=== PATIENT | female | born 1945 | race Caucasian/White ===

== ENCOUNTER 2021-12-19 13:58 | Outpatient (CLI) | payer MEDICARE, BC, SELFPAY ==
--- OUTSIDE RECORDS SUMMARY | 2021-11-22 08:53 | XMS_ITS | Continuity of Care Document ---
:1945 Author Care Team Providers Name Role Phone KAYDEN Pike Attending Physician KAYDEN Pike Primary Care Physician Allergies, Adverse Reactions, Alerts Allergen Type Severity Reaction Last Verified Status Updated Naproxen Allergy Unknown stomach upset November 06, Yes Active 2021 Influenza Allergy Unknown red swollen November 06, Yes Active Vaccines arm (3 in) 2021 and hot to touch Social History Smoking Status Status Start Date End Date Date of Observat ion Never smoked tobacco November 06 022 12:45pm (finding) Observation Status Observation Response Date of Response March 07, 2019 5: 49pm Non-smoker March 07, 2019 5: 49pm Does not use illicit drugs April 09, 2020 11:21am Additional Data Assigned Sex Female Problems Active Problems Medical Problem Onset Date Status Osteoarthritis February 23, 2012 Active Seasonal allergies February 23, 2012 Active Hyperlipidemia March 25, 2013 Active Left bundle branch block Active Environmental allergies Active B12 deficiency anemia Active Pernicious anemia Active Bladder prolapse Active Osteopenia Active Dystonia Active Low vitamin D level Active Statin intolerance Active HCD (health care directive) February 08, 2019 Active History of cataract Active Lumbar radiculopathy Active H/O: hysterectomy February 23, 2012 Active H/O breast biopsy March 03, 2013 Active History of tonsillectomy Active laparoscopic procedure for Active infertility Inactive/Resolved Problems Medical Problem Onset Date Status Cough November 15, 2013 Resolved Maxillary sinusitis, acute Resolved Wart Resolved Acute maxillary sinusitis Resolved Medications Medication Status Dose Units Route Directions Qty Days Start End Ins tructions Date Date Allergy Active 1 UNIT INJ As Directed Shots Botulinum Active 100 UNIT IM Q3 Months 1 Dr Chinchilla Toxin Type A Ann (Botox) [place] Unknown clinic of Strength INJ Neurolo gy Cyanocobalam Active 1000 MCG IM Once 1 in (Vitamin B 12) 1,000 Mcg/Ml INJ Doxycycline Active 100 MG PO Twice Daily 18 November Hyclate For 10 Days 2021 10:53am Fluocinolone Active 5 DROP AFFEAR Twice A Day 18 November Acetonide , (Otic) 2021 10:53am Fluticasone Active 1 SPRAY EACH Twice A Day 03 March Propionate NOSTR , (Fluticasone 2013 Propionate 7:38am (Nasal)) 50 Mcg/1 Sublette INH Polymyxin/Tr Active 2 DROP AFE Three Times 10 June Use tid in imethoprim A Day , affected 3 Sulfate 2021 times day fo r (Polymyxin 11:05am 5 to 7 days B-Trimethopr im ()) ADILENE Albuterol Disconti 2 PUFF INH Every 4 June (Proventil nued Hours , , Hfa) 90 Mcg 2016 2016 INH 9:04am 8:20am Albuterol Disconti 2 PUFF INH Every 4 September (Proventil nued Hours as , r Hfa) 90 Mcg needed 2013, INH 10:00am 2013 7:30am Amoxicillin Disconti 500 MG PO Tid X 7 July nued Days r , , 2019 2020 3:12pm 10:17a m Amoxicillin Disconti 500 MG PO Tid X 7 November nued Days , 2016 2:31pm 9:40am Amoxicillin Disconti 875 MG PO Twice Daily October nued For 10 Days , 2014 9:29am 12:46p m Aspirin Disconti 325 MG OR Daily r nued y 2021 10:57a m Aspirin Disconti 325 MG PO Daily Novemb nued er 2011 8:33am Atorvastatin Disconti 20 MG PO Bedtime Marchuar Calcium nued , y 2013, 7:38am 2014 9:21am Azithromycin Disconti 250-5 MG PO Daily 06 March Novemb 5 00 mg x 1 nued , er day then 250 2020 01, mg daily x 4 6:22pm 2020 days 11:08a m Azithromycin Disconti 250-5 MG PO As Directed [address] 500 MG ON DAY (Zithromax nued , , 1 THEN 25 0 MG Z-Herbie) 250 2019 2019 DAILY X 4 Mg TAB 9:02am 11:29a MORE DAYS m Azithromycin Disconti 250-5 MG PO As Directed Ap ril 500 MG ON DAY (Zithromax nued 00 er 17th, 1 THEN 25 0 MG Z-Herbie) 250 2018 DAILY X 4 Mg TAB 2018 9:51am MORE DAYS 10:50am Azithromycin Disconti 250-5 MG PO As Directed Se ptem 500 MG ON DAY (Zithromax nued 00 er fransisco 1 THEN 25 0 MG Z-Herbie) 250 , DAILY X 4 Mg TAB 2017 2017 MORE DAYS 9:38am 10:50a m Azithromycin Disconti 250-5 MG PO As Directed August em 500 MG ON DAY (Zithromax nued 00 , fransisco 1 THEN 25 0 MG Z-Herbie) 250 2018 01, DAILY X 4 Mg TAB 9:59am 2017 MORE DAYS 9:09am Azithromycin Disconti 250-5 MG PO As Directed [facility] Ja nuar 500 MG ON DAY (Zithromax nued 00 r 14th, y 1 THEN 250 MG Z-Herbie) 250 2017 04, DAILY X 4 Mg TAB 10:24am 2017 MORE DAYS 10:11a m Azithromycin Disconti 250-5 MG PO Daily June 50 0 mg x 1 nued 00 , 30, day then 250 2016 2017 mg daily x 4 9:04am 9:40am days Azithromycin Disconti 250-5 MG [facility] x 1 nued 00 r 12th, y day then 250 2016 04, mg daily x 4 8:44am 2017 days 8:33am Azithromycin Disconti 250-5 MG PO Daily 04 November Octobe 500 mg x 1 nued 00 17, r day then 250 2013, mg daily x 4 4:34pm 2013 days 7:30am Azithromycin Disconti 250-5 MG PO Daily August 500 mg x 1 nued 00 , , day then 250 2013 2013 mg daily x 4 3:45pm 9:43am days Azithromycin Disconti 250-5 MG PO Daily 04 October Octobe 500 mg x 1 nued 00 9, r 3rd, day then 250 2012 2012 mg daily x 4 9:58am 9:47am days Cyanocobalam Disconti 1000 MCG IM Once October in (Vitamin nued 14th, 14, B 12) 2021 Mcg/Ml INJ 8:47am 8:57am Cyanocobalam Disconti 1000 MCG IM Once September in (Vitamin nued , 27, B 12) 2021 Mcg/Ml INJ 11:15am 11:17a m Cyanocobalam Disconti 1000 MCG IM Once September in (Vitamin nued 4th, 4th, B 12) 000 2021 2021 Mcg/Ml INJ 1:39pm 2:01pm Cyanocobalam Disconti 1000 MCG IM Once July in (Vitamin nued , , B 12) 2021 Mcg/Ml INJ 9:42am 9:53am Cyanocobalam Disconti 1000 MCG IM Once July in (Vitamin nued 8th, 8th, B 12) 2021 Mcg/Ml INJ 9:14am 9:20am Cyanocobalam Disconti 1000 MCG IM Once Februa in (Vitamin nued y 7th, ry B 12) 2021 7th, Mcg/Ml INJ 10:24am 2021 10:28a m Cyanocobalam Disconti 1000 MCG IM Once June in (Vitamin nued 21st, y B 12) 2021, Mcg/Ml INJ 11:17am 2021 11:18a m Cyanocobalam Disconti 1000 MCG IM Once June in (Vitamin nued 3rd, y 3rd, B 12) 2021 Mcg/Ml INJ 10:12am 10:15a m Cyanocobalam Disconti 1000 MCG IM Once in (Vitamin nued r 19, er B 12) 2020, Mcg/Ml INJ 8:51am 2020 9:11am Cyanocobalam Disconti 1000 MCG IM Once b in (Vitamin nued r 9th, er B 12) 2020, Mcg/Ml INJ 8:37am 2020 9:15am Cyanocobalam Disconti 1000 MCG IM Once 1 October Octobe in (Vitamin nued , r B 12) 1,000 2020, Mcg/Ml INJ 9:02am 2020 9:11am Cyanocobalam Disconti 1000 MCG IM Once March in (Vitamin nued , r B 12) 000 2021 05, Mcg/Ml INJ 8:34am 2020 8:45am Cyanocobalam Disconti 1000 MCG IM Once 1 Septem in (Vitamin nued er fransisco B 12) 1,000 , , Mcg/Ml INJ 2020 2020 12:58pm 1:06pm Cyanocobalam Disconti 1000 MCG IM Once 1 Septem in (Vitamin nued er fransisco B 12) 1,000 , , Mcg/Ml INJ 2020 2020 9:40am 9:53am Cyanocobalam Disconti 1000 MCG IM Once December in (Vitamin nued , , B 12) 2020 Mcg/Ml INJ 10:38am 10:40a m Cyanocobalam Disconti 1000 MCG IM Once December in (Vitamin nued , , B 12) 000 2020 2020 Mcg/Ml INJ 9:44am 9:46am Cyanocobalam Disconti 1000 MCG IM Once December in (Vitamin nued , , B 12) 2020 Mcg/Ml INJ 2:36pm 2:39pm Cyanocobalam Disconti 1000 MCG IM Once November in (Vitamin nued , , B 12) ,2020 Mcg/Ml INJ 9:23am 9:51am Cyanocobalam Disconti 1000 MCG IM Once November in (Vitamin nued , , B 12) ,000 2020 2020 Mcg/Ml INJ 8:32am 8:39am Cyanocobalam Disconti 1000 MCG IM Once October in (Vitamin nued , B 12) ,000 2020 2020 Mcg/Ml INJ 9:25am 9:29am Cyanocobalam Disconti 1000 MCG IM Once October in (Vitamin nued , , B 12) ,000 2021 2021 Mcg/Ml INJ 10:36am 10:39a m Cyanocobalam Disconti 1000 MCG IM Once September in (Vitamin nued 24th, 24, B 12) ,000 2020 2020 Mcg/Ml INJ 9:08am 9:10am Cyanocobalam Disconti 1000 MCG IM Once September in (Vitamin nued 10th, 10th, B 12) ,000 2020 2020 Mcg/Ml INJ 8:32am 8:59am Cyanocobalam Disconti 1000 MCG IM Once August in (Vitamin nued , , B 12) 1,000 2020 2020 Mcg/Ml INJ 8:47am 8:49am Cyanocobalam Disconti 1000 MCG IM Once August in (Vitamin nued 16, 16, B 12) ,000 2020 2020 Mcg/Ml INJ 8:51am 8:55am Cyanocobalam Disconti 1000 MCG IM Once August in (Vitamin nued , , B 12) ,000 2020 2020 Mcg/Ml INJ 8:33am 8:51am Cyanocobalam Disconti 1000 MCG IM Once July in (Vitamin nued 18, 18, B 12) ,000 2020 2020 Mcg/Ml INJ 10:49am 10:56a m Cyanocobalam Disconti 1000 MCG IM Once July in (Vitamin nued 4th, 4th, B 12) ,000 2020 2020 Mcg/Ml INJ 8:35am 8:40am Cyanocobalam Disconti 1000 MCG IM Once 1 Februar Februa in (Vitamin nued y 15, ry B 12) 2020, Mcg/Ml INJ 2:30pm 2020 2:36pm Cyanocobalam Disconti 1000 MCG IM Once 1 Februar Februa in (Vitamin nued y , ry B 12) 2020, Mcg/Ml INJ 9:38am 2020 9:42am Cyanocobalam Disconti 1000 MCG IM Once June in (Vitamin nued 18th, y B 12) 2020, Mcg/Ml INJ 9:03am 2020 9:05am Cyanocobalam Disconti 1000 MCG IM Once 1 Netta Januar in (Vitamin nued 4th, y 4th, B 12) 1,000 2020 2020 Mcg/Ml INJ 10:09am 10:21a m Cyanocobalam Disconti 1000 MCG IM Once 1 Decembe Decemb in (Vitamin nued r 15th, er B 12) 2019, Mcg/Ml INJ 8:58am 2019 9:01am Cyanocobalam Disconti 1000 MCG IM Once 1 in (Vitamin nued r 30th, er B 12) 12019, Mcg/Ml INJ 8:56am 2019 9:00am Cyanocobalam Disconti 1000 MCG IM Once 1 in (Vitamin nued r 10th, er B 12) 2019, Mcg/Ml INJ 9:12am 2019 9:15am Cyanocobalam Disconti 1000 MCG IM Once Marchobe in (Vitamin nued 28th, r B 12) 2019, Mcg/Ml INJ 9:59am 2019 10:02a m Cyanocobalam Disconti 1000 MCG IM Once Marchobe in (Vitamin nued 16, r B 12) 12019, Mcg/Ml INJ 10:00am 2019 10:03a m Cyanocobalam Disconti 1000 MCG IM Once 1 Sept Septem in (Vitamin nued er fransisco B 12) 1000 , , Mcg/Ml INJ 2019 2019 1:14pm 1:17pm Cyanocobalam Disconti 1000 MCG IM Once 1 Septemb Septem in (Vitamin nued er fransisco B 12) 1,000 15, 15, Mcg/Ml INJ 2019 2019 1:45pm 1:48pm Cyanocobalam Disconti 1000 MCG IM Once 1 Septemb Septem in (Vitamin nued er 1st, fransisco B 12) 2019, Mcg/Ml INJ 8:40am 2019 8:45am Cyanocobalam Disconti 1000 MCG IM Once December in (Vitamin nued 17th, 17th, B 12) 2019 Mcg/Ml INJ 9:34am 9:38am Cyanocobalam Disconti 1000 MCG IM Once December in (Vitamin nued 4th, 4th, B 12) 1,000 2020 2020 Mcg/Ml INJ 8:37am 8:52am Cyanocobalam Disconti 1000 MCG IM Once November in (Vitamin nued , B 12) 1,000 2019 2020 Mcg/Ml INJ 10:41am 10:43a m Cyanocobalam Disconti 1000 MCG IM Once November in (Vitamin nued , , B 12) 1,000 2019 2020 Mcg/Ml INJ 8:53am 8:55am Cyanocobalam Disconti 1000 MCG IM Once October in (Vitamin nued , B 12) 1,000 2019 2020 Mcg/Ml INJ 9:56am 9:59am Cyanocobalam Disconti 1000 MCG IM Once September in (Vitamin nued , , B 12) 1,000 2019 2020 Mcg/Ml INJ 9:10am 9:15am Cyanocobalam Disconti 1000 MCG IM Once September in (Vitamin nued , B 12) 1,000 2019 2020 Mcg/Ml INJ 8:47am 8:56am Cyanocobalam Disconti 1000 MCG IM Once August in (Vitamin nued , , B 12) 1,000 2019 2020 Mcg/Ml INJ 9:05am 9:10am Cyanocobalam Disconti 1000 MCG IM Once August in (Vitamin nued , , B 12) 1,000 2019 2020 Mcg/Ml INJ 8:43am 8:45am Cyanocobalam Disconti 1000 MCG IM Once July in (Vitamin nued , , B 12) 1,000 2019 2020 Mcg/Ml INJ 8:45am 8:54am Cyanocobalam Disconti 1000 MCG IM Once July in (Vitamin nued , , B 12) 1,000 2019 2020 Mcg/Ml INJ 9:09am 9:15am Cyanocobalam Disconti 1000 MCG IM Once July in (Vitamin nued , B 12) 1,000 2019 2020 Mcg/Ml INJ 9:28am 9:29am Cyanocobalam Disconti 1000 MCG IM Once 1 Februar Februa in (Vitamin nued 18, B 12) 1,000 2019, Mcg/Ml INJ 3:26pm 2020 3:31pm Cyanocobalam Disconti 1000 MCG IM Once June in (Vitamin nued 24th, y B 12) 2019, Mcg/Ml INJ 10:23am 2019 10:32a m Cyanocobalam Disconti 1000 MCG IM Once June in (Vitamin nued 2nd, y 2nd, B 12) 2019 Mcg/Ml INJ 9:44am 9:54am Cyanocobalam Disconti 1000 MCG IM Once 1 Decembe Decemb in (Vitamin nued r 13, er B 12) 2018, Mcg/Ml INJ 8:32am 2018 8:38am Cyanocobalam Disconti 1000 MCG IM Once Novembe Novemb in (Vitamin nued r , er B 12) 2018, Mcg/Ml INJ 8:58am 2018 9:01am Cyanocobalam Disconti 1000 MCG IM Once Novemb in (Vitamin nued r 4th, er B 12) 2018, Mcg/Ml INJ 3:50pm 2018 3:52pm Cyanocobalam Disconti 1000 MCG IM Once March in (Vitamin nued 15th, r B 12) 2018, Mcg/Ml INJ 8:33am 2018 8:39am Cyanocobalam Disconti 1000 MCG IM Once in (Vitamin nued er fransisco B 12) , , Mcg/Ml INJ 2018 2018 8:43am 8:48am Cyanocobalam Disconti 1000 MCG IM Once December in (Vitamin nued , 16, B 12) 2018 Mcg/Ml INJ 3:31pm 3:34pm Cyanocobalam Disconti 1000 MCG IM Once November in (Vitamin nued , , B 12) 2018 Mcg/Ml INJ 8:41am 8:45am Cyanocobalam Disconti 1000 MCG IM Once October in (Vitamin nued , , B 12) 2018 Mcg/Ml INJ 9:58am 10:05a m Cyanocobalam Disconti 1000 MCG IM Once September in (Vitamin nued 13th, 13, B 12) 2018 Mcg/Ml INJ 8:55am 9:15am Cyanocobalam Disconti 1000 MCG IM Once August in (Vitamin nued 15th, 15, B 12) 2018 Mcg/Ml INJ 7:55am 8:08am Cyanocobalam Disconti 1000 MCG IM Once July in (Vitamin nued 11, 11, B 12) 2018 Mcg/Ml INJ 8:47am 8:57am Cyanocobalam Disconti 1000 MCG IM Once ua in (Vitamin nued y 11th, ry B 12) 2018, Mcg/Ml INJ 10:03am 2018 10:07a m Cyanocobalam Disconti 1000 MCG IM Once June in (Vitamin nued 9th, y 9th, B 12) 2018 Mcg/Ml INJ 3:15pm 3:18pm Cyanocobalam Disconti 1000 MCG IM Once 1 Decembe Decemb in (Vitamin nued r 10th, er B 12) 2017 10th, Mcg/Ml INJ 9:12am 2017 9:14am Cyanocobalam Disconti 1000 MCG IM Once Novemb in (Vitamin nued r 9th, er B 12) 2017, Mcg/Ml INJ 9:45am 2017 10:00a m Cyanocobalam Disconti 1000 MCG IM Once March in (Vitamin nued 11th, r B 12) 2017, Mcg/Ml INJ 9:50am 2017 9:53am Cyanocobalam Disconti 1000 MCG IM Once Sept in (Vitamin nued er fransisco B 12) , 17, Mcg/Ml INJ 2017 2017 9:16am 9:31am Cyanocobalam Disconti 1000 MCG IM Once December in (Vitamin nued , B 12) 2017 Mcg/Ml INJ 10:03am 10:07a m Cyanocobalam Disconti 1000 MCG IM Once November in (Vitamin nued , , B 12) 2017 Mcg/Ml INJ 8:44am 8:48am Cyanocobalam Disconti 1000 MCG IM Once October in (Vitamin nued , , B 12) 2017 Mcg/Ml INJ 8:38am 8:40am Cyanocobalam Disconti 1000 MCG IM Once September in (Vitamin nued , , B 12) 2017 Mcg/Ml INJ 10:36am 10:38a m Cyanocobalam Disconti 1000 MCG IM Once August in (Vitamin nued , , B 12) 2017 Mcg/Ml INJ 8:39am 8:45am Cyanocobalam Disconti 1000 MCG IM Once July in (Vitamin nued , , B 12) 2017 Mcg/Ml INJ 10:07am 10:17a m Cyanocobalam Disconti 1000 MCG IM Once June in (Vitamin nued 30, y B 12) 2017, Mcg/Ml INJ 8:53am 2017 8:56am Cyanocobalam Disconti 1000 MCG IM Once Decembe Decemb in (Vitamin nued r , er B 12) 2016, Mcg/Ml INJ 9:45am 2016 9:48am Cyanocobalam Disconti 1000 MCG IM Once in (Vitamin nued r , er B 12) 2016, Mcg/Ml INJ 10:54am 2016 10:58a m Cyanocobalam Disconti 1000 MCG IM Once March in (Vitamin nued , r B 12) 2016, Mcg/Ml INJ 2:07pm 2016 2:13pm Cyanocobalam Disconti 1000 MCG IM Once Sept in (Vitamin nued er fransisco B 12) , Mcg/Ml INJ 2016 2016 8:46am 8:50am Cyanocobalam Disconti 1000 MCG IM Once December in (Vitamin nued , B 12) 2016 Mcg/Ml INJ 3:11pm 3:17pm Cyanocobalam Disconti 1000 MCG IM Once November in (Vitamin nued , B 12) 2016 Mcg/Ml INJ 1:16pm 1:21pm Cyanocobalam Disconti 1000 MCG IM Once October in (Vitamin nued , , B 12) 2016 INJ 1:28pm 1:32pm Cyanocobalam Disconti 1000 MCG IM Once September in (Vitamin nued , , B 12) 2016 INJ 3:59pm 4:01pm Cyanocobalam Disconti 1000 MCG IM Once August in (Vitamin nued , , B 12) 2016 INJ 1:08pm 1:12pm Cyanocobalam Disconti 1000 MCG IM Once July in (Vitamin nued , , B 12) 2016 INJ 8:37am 8:48am Cyanocobalam Disconti 1000 MCG IM Once 1 uar Februa in (Vitamin nued y , ry B 12) 2016, INJ 9:03am 2016 9:08am Cyanocobalam Disconti 1000 MCG IM Once Juneuar in (Vitamin nued , y B 12) 2016, INJ 11:07am 2016 11:09a m Cyanocobalam Disconti 1000 MCG IM Once 1 Decembe Decemb in (Vitamin nued r , er B 12) 2015, INJ 8:49am 2015 8:56am Cyanocobalam Disconti 1000 MCG IM Once b in (Vitamin nued r , er B 12) 2015, INJ 8:44am 2015 8:46am Cyanocobalam Disconti 1000 MCG IM Once March in (Vitamin nued , r B 12) 2015, INJ 8:32am 2016 8:39am Cyanocobalam Disconti 1000 MCG IM Once 1 Septemb Sept in (Vitamin nued er fransisco B 12) , INJ 2015 2016 8:38am 8:40am Cyanocobalam Disconti 1000 MCG SUBQ Once December in (Vitamin nued , , B 12) 2015 INJ 8:21am 8:34am Cyanocobalam Disconti 1000 MCG IM Once November in (Vitamin nued , , B 12) 2015 INJ 8:40am 8:45am Cyanocobalam Disconti 1000 MCG IM Once October in (Vitamin nued nd, , B 12) 2015 INJ 8:39am 8:44am Cyanocobalam Disconti 1000 MCG IM Once September in (Vitamin nued , , B 12) 2015 INJ 11:39am 11:41a m Cyanocobalam Disconti 1000 MCG IM Once August in (Vitamin nued , , B 12) 2015 INJ 8:38am 8:41am Cyanocobalam Disconti 1000 MCG IM Once July in (Vitamin nued , , B 12) 2015 INJ 8:45am 8:48am Cyanocobalam Disconti 1000 MCG IM Once uar Februa in (Vitamin nued y , ry B 12) 2015, INJ 8:39am 2015 8:42am Cyanocobalam Disconti 1000 MCG IM Once Juneuar in (Vitamin nued th, y B 12) 2015, INJ 10:13am 2015 10:16a m Cyanocobalam Disconti 1000 MCG IM Once Juneuar in (Vitamin nued 7th, y 7th, B 12) 2015 INJ 8:36am 9:08am Cyanocobalam Disconti 1000 MCG IM Once 1 Decembe Decemb in (Vitamin nued r 11th, er B 12) 2014, INJ 8:35am 2014 8:44am Cyanocobalam Disconti 1000 MCG IM Once 1 Novembe Novemb in (Vitamin nued r 18th, er B 12) 2014, INJ 9:04am 2014 9:06am Cyanocobalam Disconti 1000 MCG IM Once 1 Novembe Novemb in (Vitamin nued r 11th, er B 12) 2014, INJ 8:28am 2014 8:29am Cyanocobalam Disconti 1000 MCG IM Once 1 Novembe Novemb in (Vitamin nued r 4th, er B 12) 2014, INJ 8:24am 2014 8:29am Cyanocobalam Disconti 1000 MCG IM Once March in (Vitamin nued 28th, r B 12) 000 2014, INJ 10:15am 2014 10:16a m Cyanocobalam Disconti 1000 MCG IM Once Marchobe in (Vitamin nued , r B 12) 1 000 2015 05, INJ 8:29am 2014 8:32am Cyanocobalam Disconti 1000 MCG IM Once Septem in (Vitamin nued er fransisco B 12) 1 000 , , INJ 2014 2014 1:18pm 1:24pm Cyclobenzapr Disconti 5-10 MG PO Three Times 13 January Sep tem ine Hcl nued A Day as , fransisco needed 2019, 11:46am 2019 1:26pm Diphenhydram Disconti 1-2 PO Bedtime December f or allergies ine Hcl nued , (Sleep) 2018 (Benadryl) 8:33am 25 Mg TAB Diphtheria/T Disconti 0.5 ML IM Once December etanus/Acell nued , , Pertussis 2015 2015 (Adacel) 0.5 8:29am 8:34am Ml INJ Doxycycline Disconti 100 MG PO Twice Daily December ar Hyclate nued For 10 Days 2020, 9:39am 2021 10:57a m Doxycycline Disconti 100 MG PO Twice A Day September Hyclate nued , 2013 5:35pm 10:56a m Doxycycline Disconti 100 MG PO Twice A Day Septemberob e Monohydrate nued , r 2012 4:45pm 9:47am Fluticasone Disconti 1 SPRAY EACH Twice A Day March obe Propionate nued NOSTR , r (Fluticasone 2012, Propionate 10:00am 2013 (Nasal)) 50 7:38am Mcg/1 Sublette INH Gabapentin Disconti 100 MG PO Twice A Day Novem nued er 2019 11:16a m Ibuprofen Disconti 2 TABLET PO As Needed July 10:17a m Ibuprofen Disconti 200 MG PO As Needed September nued 2012 4:34pm 3:22pm Ibuprofen Disconti 200 MG PO Q6h Prn September 4:34pm Influenza Disconti 0.7 ML IM Once 1 Virus Vac nued r 2nd, er Split High 2020 2nd, (Fluzone 9:11am 2019 High-Dose Pf 10:39a 2019 0.7 Ml) m 1 Inj INJ Influenza Disconti 0.5 ML IM Once Marchobe Virus nued , r Vaccine 2018 , (Fluzone 1:21pm 2017 High-Dose 1:25pm (65 Yrs And Older) 2017-) 1 Inj INJ Influenza Disconti 0.5 ML IM Once Marchobe Virus nued , r Vaccine 2018, Split 1:43pm 2018 (Fluzone 1:46pm High-Dose Pf 2018 0.5 Ml) 1 Inj INJ Influenza Disconti 0.5 ML IM Once Marchobe Virus nued , r Vaccine 2017 04, Split 3:04pm 2016 (Fluzone 3:05pm High-Dose Pf 2017 0.5 Ml) 1 Inj INJ Influenza Disconti 0.5 ML IM Once Marchobe Virus nued , r Vaccine 2015, Split 8:32am 2015 (Fluzone 8:39am High-Dose (65 Yrs And Older) 2015-) 1 Inj INJ Influenza Disconti 0.5 ML IM Once Marchobe Virus nued , r Vaccine 2015 05, Split 8:29am 2014 (Fluzone 8:32am High-Dose (65 Yrs And Older) 2014-) 1 Inj INJ Influenza Disconti 0.5 ML IM Once Marchobe Virus nued , r Vaccine 2013, Split 7:52am 2013 (Fluzone 8:02am High-Dose (65 Yrs And Older) 2013-) 1 Inj INJ Influenza Disconti 0.5 ML IM Once Marchobe Virus nued 3rd, r 3rd, Vaccine 2012 2012 Split 9:57am 10:09a (Fluzone (3 m Years And Older) [id number]) 1 Ml INJ Influenza Disconti 0.5 ML IM Once 1 Janemb Septem Virus nued er fransisco Vaccine , 24, Split 2011 2011 (Fluzone Pf 8:16am 8:37am [id number] (0.5 Ml)) 0.5 Ml INJ Levofloxacin Disconti 250 MG PO Daily 3 Decembe Decemb (Levaquin) nued r 15, er 250 Mg TAB 2019, 8:37am 2019 3:12pm Meclizine Disconti 12.5 MG PO Every 8 28 November Octobe Hcl nued Hours as 30th, r needed 2016 12th, 9:53am 2019 6:09pm Montelukast Disconti 10 MG PO Bedtime September Sodium nued 2013 10:00am 5:18pm Oseltamivir Disconti 75 MG PO Daily August One capsule daily; if symptoms develop take twice daily Phosphate nued y , , until all capsules are done. 2017 2017 5:33pm 7:46am Pneumococcal Disconti 0.5 ML IM Once August Polyvalent nued , , Vaccine 2017 2017 (Prevnar 13) 8:39am 8:45am 0.5 Ml INJ Pneumococcal Disconti 0.5 ML IM Once Polyvalent nued er fransisco Vaccine , (Pneumovax-2 2011 2011 3 Multidose 8:16am 8:37am Vial) 23 Mcg/0.5 Ml INJ Pravastatin Disconti 20 MG PO Bedtime August [facility] Sodium nued , er (Pravachol) 2016 05, 20 Mg TAB 2:29pm 2015 8:34am Prednisone Disconti 20 MG PO Twice A Day September nued , 2020 9:34am 3:28pm Prednisone Disconti 20 MG PO Twice A Day July nued , 2020 10:58am 9:34am Prednisone Disconti 20 MG PO Twice A Day h nued r , 2019 11:37am 10:17a m Prednisone Disconti 20 MG PO Twice A Day March mb nued 2nd, er 2020 01, 11:57am 2019 11:16a m Prednisone Disconti 20 MG PO Twice A Day December m nued 11, fransisco 2019, 11:46am 2019 1:11pm Prednisone Disconti 20-60 MG PO Daily Ud July 60 MG PO DAILY FOR 3 DAYS, THEN nued , 40 MG PO DAILY FOR 3 DAYS, THEN 2019 2019 20 MG PO DAILY FOR 3 DAYS. 1:37pm 8:42am Prednisone Disconti 20 MG PO Twice A Day July, , 2019 2019 9:15am 1:37pm Prednisone Disconti 10-40 MG PO Daily Marchobe 4 t abs daily x3d; then 3 tabs daily x3d; then 2 tabs daily nued , r x3d; then 1 ta b daily x 3d. 2018, 2:26pm 2018 8:21am Prednisone Disconti 20 MG PO Daily October 2 tab s by nued , r mouth today, 2013, then 1 tab 4:34pm 2013 daily x 3 7:30am days. Immunizations Immunization Event Date Not Given Dose Radio Equipment Installer Lot Vac cine Reason Number Number Informatio n Statement (VIS) Deta il COVID-19 Pfizer July 02 PFIZER-BIO [id number] 2020 COVID-19 Pfizer August 11, PFIZER-[employer] [id number] 2020 COVID Pfizer February 01 [id number] 2020 Influenza January 1 Sanofi Pasteur [id number] 2011 Influenza March 03, 2 Sanofi [id number] 2013 Influenza March 27, 3 Sanofi Pasteur [id number] 2014 Influenza March 12, 4 Sanofi [id number] 2015 Influenza March 21, 5 SANOFI [id number] 2016 Influenza March 11, 6 Sanofi [id number] 2017 Influenza March 22, 7 SANOFI [id number] 2018 Influenza March 28, 8 SANOFI [id number] 2019 Influenza April 02, 9 SANOFI [id number] 2019 Prevnar Adult September 08, 1 WYETH [id number] 2017 Pneumovax Adult January 1 merck 18041hr 2011 Tetanus/Diptheri November 06, 2 a 1999 Tetanus/Diptheri November 11, 1 a 1988 Tdap January 20, 1 SANOFI [id number] (adolescent/adul 2016 t) Medical Equipment Device Date Implanted Device Details TECNIS IOL January 12, 2019 ANNEMARIE: [id number] Issuing Agency: [employer] Device Id: [id number] Expiration Date: 07-10-10 Serial Number: [id number] TECNIS IOL January 26, 2019 ANNEMARIE: [id number] Issuing Agency: [employer] Device Id: [id number] Expiration Date: 07-11-04 Serial Number: [id number] Procedures Procedure Date Performed Status DXA BONE DENSITY AXIAL October 30, 2021 completed Bone densitometry October 30, 2021 completed Relevant Diagnostic Tests and/or Laboratory Data Laboratory Results Test Date/Time Result Interpretation Reference Result Perfo rming Range Comment Site Stool November 06, SEE [facility] POC Lab Colorectal 2021 8:11am SCANNED [facility] Cancer DNA REPORT Screen Diagnostic Imaging Reports Report Dictated Date/Time Dictated By Status March 10, 2019 Teresa Cardoso MD active 12:46pm [place] [address] ~DISCHARG E SUMMARY~ Patient: MAMI CASTANO MR #: [id number] : 1945 Age: 74 Sex: F MD: TERESA CARDOSO MD Report #: [id number] Loc: [facility] Dr berman March 10, 2019 Dr. Gautam Mireles [facility] [address] [facility] [address] RE: Mami Castano : [birth year] Dear Dr. Mireles: ?? I saw your patient, Mami Castano, today f or her final postop visit following cataract surgery that I did in her right eye on 01/12/2019 and the left eye on 01/26/2019. ??She is very happy with her improved vision. ??On examination, her visual acuity without correction is 20/3 0 right eye and 20/30 left eye. ??Best corrected visual acuity is 20/20 right e ye with Chelsea -0.75 at 107 degrees and 20/20 left eye with -0.50 -0.50 at 80 de grees. ??Her intraocular pressures are 14 in the right eye and 14 in the left eye. ??Slit lamp exam shows a quiet anterior chamber and bilateral posterior chamber monofocal intraocular lenses in both eyes. ?? My impression is as follows: 1. Status post cataract surgery in bot h eyes: ??She is doing well, with a best corrected visual acuity of 20/20 in each eye. ??I gave her a glasses prescription that she may have filled with you. ? 2. Posterior vitreous detachment, both eyes.?? 3. Left upper lid ptosis: ??I referred her to Dr. Jeannine Feliz at [facility] for a 2nd op inion for the treatment of her hemifacial spasm. ??When she initially p resented to me, she stated that she had some unwanted side effects with double v ision from previous Botox injections. ? 4. Dermatochalasis, both eyes.?? She will follow up with you next year fo r her annual exam and ongoing care. ??Please do not hesitate to contact me d irectly with any questions or concerns. ??It is a pleasure to share in the care of this very nice patient. ??Thank you again for the referral. Sincerely, Teresa Cardoso MD MJM:ray Dictated By: TERESA CARDOSO MD Signed B y: Report Dictated Date/Time Dictated By Status October 30, 2021 3:10pm Joanne Bone MD completed [address] [address] ~DEPARTMENT OF DI AGNOSTIC IMAGING~ Patient: MAMI CASTANO MR #: [id number] : 1945 Age: 76 Sex: F Ordering MD: Daphne Pike Rm/Be d: Loc: RAD Report #: [id number] Si gned DATE: 10/30/2021 Technique: DXA Bone Densitometry perform ed on Palm System.?? *Comparison exams done prior to 10/2019 w ere performed on different unit, [employer]. Indication:??postmenopausal; screening f or osteoporosis; hysterectomy; ? Clinical Information Provided by Patient : Has the following medical conditions: Hysterectomy Patient maximum height was 65 Menopause Age 42 No regular weight bearing exercise ?? Does not regularly consume dairy product s ?? Drinks caffeinated beverages ?? Onset of menses at age 15 Number of children 2 ? Bone Density:??Exam date 10/30/2021 Region BMD (g/cm2) T-score Z-score Classification AP Spine(L1-L4) 1.150 ??0.9 ??3.4 Normal Femoral Neck(Left) 0.832 -0.2 ??2.0 Normal Total Hip(Left) 0.926 -0.1 ??1.7 Normal Femoral Neck(Right) 0.852 ??0.0 ??2.2 Normal Total Hip(Right) 0.954 ??0.1 ??2.0 Normal Femoral Neck Mean 0.842 -0.1 2.1 Normal Total Hip Mean 0.940 0.0 1.9 Normal World Health Organization criteria for B MD impression classify patients as Normal (T-score at or above -1.0), Osteo penia (T-score between -1.0 and -2.5), or Osteoporosis (T-score at or below -2. 5). ? 10-year Fracture Risk: FRAX not reported because:?? All T-score s for Spine Total, Hip Total, Femoral Neck at or above -1.0 ? Previous Exams: ?? Region Exam Date Age BMD (g/cm2) T-score BMD Change vs. Baseline BMD Change vs. Previous AP Spine (L1-L4) 10/30/2021 76 1.150 ??0.9 2.0%# 2.0%# ?? 09/14/2017 72 1.127 ??0.7 ? Total Hip(Left) 10/30/2021 76 0.926 -0.1 -4.8%*# -4.8%*# ?? 09/14/2017 72 0.972 ??0.2 ? Total Hip(Right) 10/30/2021 76 0.954 ??0.1 -2.4%# -2.4%# ?? 09/14/2017 72 0.977 ??0.3 ? Total Hip (Mean) 10/30/2021 76 0.940 ??0.0 -3.6%*# -3.6%*# ?? 09/14/2017 72 0.975 ??0.3 ? *Denotes significance at 95% confidence level, LSC for AP Spine = 0.022 g/cm2??or 0.027 g/cm2??for different scan types??, ??LSC for Total Hip = 0.027 g/cm2??or 0.032 g/cm2??for different scan types? # Denotes dissimilar scan types or barbra sis methods ?? Impression:??The patient has normal bone mass. No significant bone loss was observed. ?? Discussion:??BONE DENSITY IS ABOVE THE M INIMUM DESIRABLE LEVEL AT ALL SKELETAL SI SULY TESTED. This patient's bone mineral density is a ari the minimum desirable level (T- score -1.0 or better) at all sites measu red. The patient should follow a healthful lifestyle (good nutrition with adequate calcium and vitamin D, and appropriate weight-bearing exercise). ?? Follow-Up:??Consider repeating this stud y in 5 years or sooner if there is some new clinical indication. ?? Reported by:??Lissa Austin MD on 10/30 3:12:00 PM. ?? <<Signatur e on File>> Dictated By: JOANNE BONE MD Signed By: LISSA AUSTIN MD Vital Signs Vital Reading Result Reference Range Collection Date/ Time Height 64.750 [in_i] November 06, 2021 1 0:21am Height 164.47 cm November 06, 2021 1 0:21am Weight 172.00 [lb_av] November 06, 2021 1 0:21am Weight 78.036266 kg November 06, 2021 1 0:21am Body Temperature 97.5 [degF] November 06, 2021 10:21am Body Temperature 36.39 Ray November 06, 2021 10:21am BP Systolic 144 mm[Hg] November 06, 2021 1 0:21am BP Diastolic 65 mm[Hg] November 06, 2021 1 0:21am Heart Rate 78 /min November 06, 2021 1 0:21am Respiratory rate 18 /min November 06, 2021 10:21am Body surface area 1.85 m2 November 06, 2021 10:21am BMI (Body Mass Index) 28.9 kg/m2 November 06, 2021 10:21am Advance Directives Advance Directive Response Recorded Date/Time Does Pt have Health Care No September 04, 2015 12:24pm Directive? Has patient completed a Yes November 06, 2021 1 2:45pm Health Care Directive? Insurance Providers Guarantor Omaira Mami Espinoza Address [address] [address] Contact Info. Home Phone: Payer Policy Id Coverage Id Subscriber's Subscriber Id Effective E xpiration Name Date Date Adiel Samuel [id number] Lewmiguel Mami Espinoza June 01, [place] 220G 2011 Medicare [id number] Mami Castano 43 Encounters Encounter Location(s) Arrival/Admit Date Discharge/Depart Date Provider(s) Registered [facility] November 12, 2021 [facility] 8:30am Office Visit [place] November 12, 2021 Daphne Pike [facility] 8:30am [place] Office Visit [place] November 06, 2021 [facility] 10:30am Raine Toney MD Registered [place] October 30, 2021 Daphne Pike [facility] 2:38pm [place] Office Visit [place] October 25, 2021 Daphne Pike [facility] 11:00am [place] Recent Diagnosis Onset Date Acute sinusitis Acute seborrheic dermatitis Assessments Diagnosis Onset Date Resolution Status Acute sinusitis Acute seborrheic dermatitis Plan of Treatment Instructions from visit on: 11/06/21 Please follow the provider's instructions as discussed during your visit. Future Tests Future scheduled test information is unavailable Pending Tests Pending diagnostic test information is unavailable Future Visits Future appointment information is unavailable Referrals to Other Providers Reason for Referral Start Provider Provider Contact Provider Address Referral Date Information APPT 04/03/2014 AT [facility] Work Phone: [phone] [employer] 7:45AM AT THE [address] [place] [id number] [place] LOCATION. ORDER HAS BEEN HOSPITAL, FAXED TO [facility] AND THEY WILL BE CALLING TO SCHEDULE. APPT 04/03/2014 AT [facility] Work Phone: [phone] [employer] 7:45AM AT THE [place] [place] [id number] [place] LOCATION. ORDER HAS BEEN HOSPITAL, FAXED TO [facility] AND THEY WILL BE CALLING TO SCHEDULE. Future Procedures Procedure Name Scheduled Date TYLOR Bilat Mammo Scrn Future Medications Future medication information is unavailable Patient Instructions Patient instructions are unavailable Goals Ambulatory Goals Reach or maintain optimal well being.
--- NOTE | 2021-12-19 14:00 | CRLHL7_ITS ---
For Patients: As a result of the Century Cures Act, medical imaging exams and procedure reports are released immediately into your electronic medical record. You may view this report before your referring provider. If you have questions, please contact your health care provider. BILATERAL MAMMOGRAM WITH COMPUTER-AIDED DETECTION AND TOMOSYNTHESIS TECHNIQUE: CC and MLO views were obtained. These mammographic images have been obtained using full-field digital technique. These mammographic images were interpreted with the benefit of computer-aided detection. Breast Tomosynthesis was used in this interpretation. COMPARISON FILM: 06/04/2018, 04/28/2017, 04/15/2016. FINDINGS: There are scattered areas of fibroglandular density IMPRESSION: There is no radiographic evidence for malignancy. ASSESSMENT: BI-RADS Category 1: Negative RECOMMENDATION: Routine screening mammogram in 1 year. A lay language report of this examination will be provided to the patient. Dougie Willingham M.D. Diagnostic Radiologist [email or web address] AMILCAR/irma solis/Dictated by: Dougie Willingham MD @ 12/20/2021 8:38:00 AM (Electronically Signed)
== END 2021-12-19 13:59 | disposition home or self-care (01) ==
LOC: MAMMO 14:01
PROVIDERS: PCP Physician Assistant Medical; Visit Provider Physician Assistant Medical
DX: Z12.31 Encounter for screening mammogram for malignant neoplasm of breast (principal)
CPT/HCPCS: 77063; 77067

== ENCOUNTER 2022-01-16 09:00 | Outpatient (CLI) | payer MEDICARE, BC, SELFPAY ==
[2022-01-16 13:37] LABS: INR 0.88 (0.91-1.10); Prothrombin Time 12.4 Seconds
[2022-01-16 14:19] LABS: Albumin* 4.6 g/dL (3.3-5.0); Chloride* 107 mmol/L (96-114); Potassium* 4.4 mmol/L (3.6-5.1); Sodium* 142 mmol/L (135-149)
[2022-01-16 14:22] LABS: Alanine Aminotransferase* 22 U/L (4-35); Alkaline Phosphatase* 92 U/L (40-150); Aspartate Amino Transferase* 32 U/L (12-35); Bilirubin Total* 0.5 mg/dL (0.1-1.5); Blood Urea Nitrogen* 16 mg/dL (7-30); Carbon Dioxide* 25 mmol/L (20-32); Creatinine* 0.6 mg/dL (0.5-1.5); Estimated Glomerular Filt Rate 93 ml/min; Glucose* 98 mg/dL (60-115); Total Protein* 7.9 g/dL (6.0-8.3)
[2022-01-16 14:23] LABS: Calcium* 9.7 mg/dL (8.4-10.6)
[2022-01-20 23:06] LABS: FACV Specimen Whole Blood; Factor V Leiden (F5) Mutation Negative
== END 2022-01-16 09:01 | disposition home or self-care (01) ==
PROVIDERS: PCP Physician Assistant Medical; Visit Provider Family Medicine
DX: D51.9 Vitamin B12 deficiency anemia, unspecified (principal); I10 Essential (primary) hypertension; Z83.2 Family history of diseases of the blood and blood-forming organs and certain disorders involving the immune mechanism; Z13.0 Encounter for screening for diseases of the blood and blood-forming organs and certain disorders involving the immune mechanism
CPT/HCPCS: 80053; 81241; 85610

== ENCOUNTER 2022-01-20 08:01 | Day surgery (SDC) | payer MEDICARE, BC, SELFPAY ==
[2022-01-20] VITALS (23 sets, daily range): BP systolic 106–167; BP diastolic 57–89; PULSE 49–79; RESP 12–20; TEMP 35.8–36.8; O2SAT 93–100; BMI 29.5
[2022-01-20] MEDS: SODIUM CHLORIDE 0.9 % (FLUSH) 10 ML SYRINGE IVF (09:14)
[2022-01-20] MEDS: LACTATED RINGERS 1000 ML 1,000 ML 100 ML IV (09:14)
[2022-01-20] MEDS: OXYCODONE (CR) 10 MG TAB.ER.12H PO (09:16)
[2022-01-20] MEDS: CELECOXIB 200 MG CAPSULE PO ×2 (09:16→21:32)
[2022-01-20] MEDS: ACETAMINOPHEN 500 MG TABLET 1000 MG PO ×3 (09:16→23:49)
--- NOTE | 2022-01-20 10:44 | CRLHL7_ITS ---
For Patients: As a result of the Cures Act, medical imaging exams and procedure reports are released immediately into your electronic medical record. You may view this report before your referring provider. If you have questions, please contact your health care provider. Indication: Postop Technique: Two views left knee Findings/Impression: Hardware from a left total knee arthroplasty is in satisfactory position. Bone alignment is normal. No sign of acute fracture. Postop changes are within normal limits. Dictated by Dougie Willingham MD @ 01/20/2022 3:16:45 PM (Electronically Signed)
[2022-01-20] MEDS: fentaNYL 100 MCG/2 ML inj IVP (10:51)
[2022-01-20] MEDS: MIDAZOLAM HCL 1 MG/ML inj IVP (10:51)
--- NOTE | 2022-01-20 10:53 | SUR.PREOP ---
TIME?OUT:?1050 PT/RN/MDA?VERIFICATION?OF?SURGICAL?SITE,?PROCEDURE,?AND?CONSENT OBTAINED?PRIOR?TO?INVASIVE?PROCEDURE. all in agreement
--- NOTE | 2022-01-20 11:05 | P.NB_ITS ---
Nerve Block Nerve Block Date Seen: 01/20/22 Type of block requested by surgeon for post-operative analgesia: adductor canal Side: left Time out performed: Yes Verification of patient name: Yes Verification of date of : Yes Site marking: site marked Name of person performing procedure: Sekou Continuous monitoring Was continuous monitoring of O2 sat, B/P, mechanic sound technician, recorded every 15 minutes?: Yes Procedure Checklist: sterile prep, needles and gloves Ultrasound guided. Images saved: Yes Medications given in 5ml increments after negative aspiration: Ropivicaine %: 0.5 mL: 20 Needle gauge: 22 Decadron (mg): 10 Precedex (mcg): 25 Patient tolerated procedure well: Yes Additional comments: Needle noted adjacent to nerve Block Charges Block Charge (with Pro Fee): Femoral Nerve Use of Ultrasound Machine for Block: Yes- US Guidance/pain block
--- NOTE | 2022-01-20 11:05 | W.PM.NB ---
Nerve Block Nerve Block Date Seen: 01/20/22 Type of block requested by surgeon for post-operative analgesia: geniculars Side: left Time out performed: Yes Verification of patient name: Yes Verification of date of : Yes Site marking: site marked Name of person performing procedure: Sekou Continuous monitoring Was continuous monitoring of O2 sat, B/P, blending tank tender, recorded every 15 minutes?: Yes Procedure Checklist: sterile prep, needles and gloves Medications given in 5ml increments after negative aspiration: Ropivicaine %: 0.5 mL: 9 Needle gauge: 25 Patient tolerated procedure well: Yes Block Charges Block Charge (with Pro Fee): Genicular Nerve Block Use of Ultrasound Machine for Block: No
[2022-01-20] MEDS: CEFAZOLIN 2 GM in 0.9 % SODIUM CHLORIDE Mini-bag 100 ML IVPB ×2 (12:28→18:03)
--- NOTE | 2022-01-20 13:34 | P.ORPRC_ITS ---
Procedure Note Date of procedure: 01/20/22 Procedure: PREOPERATIVE DIAGNOSIS: 1. Left knee osteoarthritis, primary, severe POSTOPERATIVE DIAGNOSIS: 1. Left knee osteoarthritis, primary, severe PROCEDURE: 1. Left total knee arthroplasty SURGEON: Braxton Sneed MD. OIL DERRICK OPERATOR: Pawan Moran PA-C - Of note, a skilled retail loan originator assistant was critical for this case to aid in patient positioning, tissue retraction, limb manipulation/positioning, and closure. ANESTHESIA: Spinal anesthetic EBL: 50ml IMPLANTS: DePuy J&J all cemented TKA - Attune PS femur size 6 narrow, size 4 tibia, 5 poly spacer, 35 mm patella TOURNIQUET: 80 minutes at 300 torr COMPLICATIONS: None evident INDICATIONS: The patient is a pleasant 76-year-old female who has experienced severe left knee pain and difficulty bearing weight. Workup included x-rays which revealed severe osteoarthrosis in the knee. Given the deformity, the dysfunction, and the pain, as well as the failure of nonoperative management, recommendation was made for surgery. FINDINGS: Full-thickness chondral loss medial compartment with erosion/grooving into the condyle and tibial plateau. Substantial chondromalacia patellofemoral compartment and to a lesser degree lateral compartment. Moderate effusion upon entering the joint. No loose bodies evident. Perimeter osteophytes noted, however. DESCRIPTION OF PROCEDURE: Following a thorough discussion of risks, benefits, and alternatives consent was obtained and the left knee was marked. The patient was brought to the operating room and placed supine on the operating table. Induction of anesthesia was undertaken. 1 g IV Ancef and 1 g tranexamic acid was administered within 1 hr of incision preoperatively. Proper time-out was performed identifying proper patient, site, procedure. The operative extremity was prepped and draped in the appropriate sterile fashion using ChloraPrep after the patient was positioned supine with all bony prominences well padded. A longitudinal, anterior, midline skin incision was made starting approximately 3cm proximal to the superior pole of the patella and advanced distal to the tibial tubercle. A median parapatellar arthrotomy was created. A medial subperiosteal sleeve was created with knife, salmon elevator and curved osteotome. The retropatellar fatpad was resected and the synovium in the suprapatellar pouch excised to visualize the anterior femoral cortex. Femoral preparation was performed via an intramedullary guide. Step drill allowed access into the femoral canal. The distal cutting guide was placed with 5? of valgus and 11 mm cut on the distal femur due to 10 degree flexion co ntracture. Femur was sized using a anterior referencing guide in 3? of external rotation. This found have a best fit with the sizing noted above. The 4 in 1 cutting block was then placed, and the distal femur shaped accordingly. The box cut was then created and the trial implant inserted to confirm appropriate fit. We turned our attention to the proximal tibia. Extramedullary guide was utiliz ed for cutting with the goal of being 90 degree cut from the mechanical axis of the tibia in the varus/valgus plane utilizing tibial crest as the primary alignment. Initially a 2 mm resection was performed from the medial tibial plateau. Ultimately, balancing was achieved in both flexion and extension in both varus and valgus. The knee was able to achieve full extension as well comfortably. The patella was initially measured and found have a thickness of 23 mm. It was resected back to approximately 14 mm. It was sized to be a best fit with as noted above. This was drilled, trial placed. All trials were placed and found to have an excellent stability and balance. At this stage, trial implants were removed, the knee was thoroughly irrigated with normal saline, and the cement was mixed. After irrigation, the knee was thoroughly dried, and cement placed, with the real tibial and femoral implants placed along with the patella. Trial poly spacer was placed and confirmed to have excellent range of motion and full extension, and the real poly spacer opened and inserted. All extra cement was removed, and a 3 min Betadine soak performed. Finally, a final irrigation round with normal saline was performed. Closure performed with 0 PDS and #0 Stratafix for the quad tendon/retinaculum. 2-0 Vicryl/Stratafix for the subcutaneous and 4-0 Monocryl for subcuticular closure. Dressings were applied and the patient was awoken from anesthesia after the tourniquet deflated and transferred the PACU in stable condition. A skilled retail loan originator assistant was critical for this case to aid in patient positioning, tissue retraction, bone exposure, limb manipulation/positioning, patient safety, and closure. PLAN: 1. Weight bear as tolerated operative extremity. 2. 23 hr perioperative antibiotics. 3. Ice. 4. PT/OT consults for ambulation assistance/mobility education. 5. Social work consult for discharge planning. 6. DVT prophylaxis with at SCDs, Pilo Hose, and aspirin twice daily.
[2022-01-20] MEDS: LACTATED RINGERS 1000 ML 1,000 ML 35 ML IV (14:31)
--- NOTE | 2022-01-20 14:37 | W.ANESCHARGE ---
Anesthesia Charges Start Date/Time Anesthesia Start Date: 01/20/22 Anesthesia Start Time: 12:14 Stop Date/Time Anesthesia Stop Date: 01/20/22 Anesthesia Stop Time: 14:33 Summary Extremes of Age: Over 70-CPT 41808
--- NOTE | 2022-01-20 14:41 | W.ANESCHARGE ---
Anesthesia Charges Start Date/Time Anesthesia Start Date: 01/20/22 Anesthesia Start Time: 12:14 Stop Date/Time Anesthesia Stop Date: 01/20/22 Anesthesia Stop Time: 14:33 Summary Extremes of Age: Over 70-CPT 21804
--- NOTE | 2022-01-20 16:25 | PM.IMCN1 ---
Date of Consult Consult date: 01/20/22 Requesting Physician: Orthopedics Primary Care Provider: Daphne Pike PA-C Consult Narrative Reason for consult: Post Op Medical Management Narrative: Cristina Ferrell is a 76 year old female who underwent Left Total Knee Arthroplasty earlier today. She is feeling well and has no concerns. Pt arrived on the med surg floor with no reports of any issues intraoperatively or post op. She does have a sister with Factor V Leiden but she herself has no personal history of clotting disorder. Pt's Factor V Leiden testing was drawn at her pre op visit and is still pending. Pt is currently receiving aspirin for DVT prophylaxis. Review of Systems Status of ROS: Reports: 10 or more systems reviewed and unremarkable except as noted in History and below PFSH PFS Medical History (Updated 01/20/22 @ 16:40 by Pasquale Gallardo MD) Bladder prolapse Dystonia Encounter for counseling regarding advance directives (02/08/19) History of cataract HTN (hypertension) Hyperlipidemia Left bundle branch block Osteoarthritis Pernicious anemia Sciatica Surgical History (Updated 01/20/22 @ 16:36 by Pasquale Gallardo MD) History of breast biopsy (03/03/13) History of hysterectomy (02/23/12) History of spinal fusion (~10/2020) History of tonsillectomy History of total left knee replacement Family History Mother Stroke, Onset Age: 63 Sister Leukemia Coagulation disorder Father Myocardial infarction, Onset Age: 72 Social History Narrative: Does not use illicit drugs Non-smoker Smoking Status: Never smoker Do you use any of these nicotine containing products: None Second hand tobacco smoke exposure: No How often do you have a drink containing alcohol: never AUDIT-C Alcohol total score: 0 Non-prescribed substance use: denies use Non-prescribed substance use details: zyrtec, benadryl, aspirin, acetaminophen Caffeine: Yes (coffee, 1 cup/day) Meds Home Medications and Allergies Home Medications Medication Instructions Recorded Confirmed Type acetaminophen 500 mg tablet 500 mg PO Q6H PRN 01/02/22 01/20/22 History (Tylenol Extra Strength) cyanocobalamin (vitamin B-12) 1,000 mcg IM .Q other Week 01/02/22 01/20/22 History 1,000 mcg/mL injection solution onabotulinumtoxinA 100 unit 100 unit IM .Q3 Months 01/02/22 01/16/22 History solution for injection fluocinolone acetonide oil 0.01 % 5 drp otic (ear) BID PRN 01/16/22 01/20/22 History ear drops fluticasone propionate 50 2 spray intranasal QDAY PRN 01/16/22 01/20/22 History mcg/actuation nasal spray,suspension losartan 50 mg tablet 50 mg PO DAILY 01/20/22 01/20/22 History Allergies Allergy/AdvReac Type Severity Reaction Status Date / Time naproxen Allergy Intermediate stomach Verified 01/16/22 08:32 upset tree and shrub pollen Allergy Intermediate runny nose Verified 01/16/22 08:33 Exam Narrative: Exam Narrative: EXAM GENERAL: Patient appears comfortable and well. EYES: No scleral icterus. THYROID: no thyroid nodules or thyromegaly. LYMPH: No supraclavicular or cervical lymphadenopathy. SKIN: Visible skin seen during exam normal or with benign process only. EXT: L knee is dressed post operatively HEART: Regular rate and rhythm with no murmurs, rubs, or gallops. LUNGS: Clear to auscultation bilaterally with no crackles or wheezes. ABD: Soft, non tender, non distended. PSYCH: Good eye contact, speech is not pressured. Const: Vital Signs, click to edit/add: Vital Signs - 24 hr 01/20/22 09:01 01/20/22 10:46 01/20/22 10:52 Temperature 98.2 F Pulse Rate 79 63 63 Respiratory Rate 16 16 14 Blood Pressure 163/82 H 167/82 H 142/66 H Pulse Oximetry 98 99 99 Oxygen Delivery Me thod Room Air Nasal Cannula Nasal Cannula Oxygen Flow Rate 2 2 01/20/22 10:55 01/20/22 14:29 01/20/22 15:00 Temperature 97.3 F L 97.4 F L Pulse Rate 64 62 58 L Respiratory Rate 14 12 12 Blood Pressure 133/67 106/64 127/66 Pulse Oximetry 99 95 93 Oxygen Delivery Me thod Nasal Cannula Non Rebreather Mas k Room Air Oxygen Flow Rate 2 6 01/20/22 15:05 01/20/22 14:35 01/20/22 14:40 Temperature Pulse Rate 58 L 61 59 L Respiratory Rate 12 13 14 Blood Pressure 140/80 H 115/62 108/67 Pulse Oximetry 96 94 100 Oxygen Delivery Me thod Nasal Cannula OxyMask OxyMask Oxygen Flow Rate 3 6 6 01/20/22 14:45 01/20/22 14:50 01/20/22 15:10 Temperature 97.2 F L Pulse Rate 52 L 56 L 58 L Respiratory Rate 12 20 20 Blood Pressure 123/66 131/71 137/62 Pulse Oximetry 100 98 100 Oxygen Delivery Me thod OxyMask OxyMask Nasal Cannula Oxygen Flow Rate 6 6 2 Assessment and Plan Assessment and plan (1) History of total left knee replacement: Status: Acute Assessment and Plan: I have reviewed her family history and find that her Factor V Leiden testing is still pending. Pt has no personal history of blood clots. Will continue with aspirin for DVT prophylaxis as well as standard post operative treatment. Pt will be a full code and anticipates discharge with her in the am. (2) Family history of factor V Leiden mutation: Status: Chronic Assessment and Plan: Again testing is still pending. Will continue aspirin and plan for discharge tomorrow if all goes well. (3) HTN (hypertension): Status: Chronic Assessment and Plan: Will continue outpt mangement. (4) B12 deficiency anemia: Status: Chronic Assessment and Plan: Follow up as an outpt. I do note that her preoperative Hgb is 13.2.
[2022-01-20] MEDS: ONDANSETRON 2 MG/ML inj 4 MG IVP (17:22)
--- NOTE | 2022-01-20 20:09 | PC.NURSE ---
shift note: pt to room @ 1530 via bed. pt slightly disoriented. pt reoriented. Pt's spouse at bedside. pt placed on gerson hugger for low temp and all over body shaking. Vss per post op protocol initiated. pt had nausea this carlita and received zofran with relief. pt incont of urine x1. Pt up to recliner for supper with [address] cuff in [address] on lt knee. cms returned @ approx 1730 in lt l/e. drsg to lt l/e c/d/i. IV patent.
[2022-01-20] MEDS: OXYCODONE 5 MG TABLET PO (20:20)
[2022-01-20] MEDS: SENNOSIDES 1 TAB TABLET 2 TAB PO (21:32)
[2022-01-20] MEDS: ASPIRIN 81 MG TABLET EC PO (21:33)
[2022-01-21] MEDS: OXYCODONE 5 MG TABLET PO ×2 (02:31→08:44)
[2022-01-21] MEDS: CEFAZOLIN 2 GM in 0.9 % SODIUM CHLORIDE Mini-bag 100 ML IVPB ×2 (02:32→10:47)
[2022-01-21] MEDS: LACTATED RINGERS 1000 ML 1,000 ML 75 ML IV (02:33)
[2022-01-21 03:00] VITALS: BP 128/66; PULSE 70; RESP 16; TEMP 36.5; O2SAT 95
--- NOTE | 2022-01-21 05:29 | PC.NURSE ---
[id number]: surgical site c/d/i, cryo cuff in place, patient up with assist X1 walker and gait belt. pain well controlled with PRN meds, steady gait with ambulation. tolerating diet w/o nausea.
[2022-01-21] MEDS: ACETAMINOPHEN 500 MG TABLET 1000 MG PO ×2 (05:51→12:23)
[2022-01-21 07:00] VITALS: BP 125/59; PULSE 62; RESP 20; TEMP 36.7; O2SAT 97
[2022-01-21 07:32] LABS: Basophils Percent Auto 0.1 % (0.0-3.0); Hematocrit 33.9 % (33.0-51.0); Hemoglobin* 11.5 gm/dL (12.0-16.0); Immature Granulocytes Abs Auto 0.06 K/uL (0.00-0.30); Lymphocytes Percent Auto 5.8 % (20-44); Mean Corpuscular HGB Conc 34 gm/dL (32-36); Mean Corpuscular Hemoglobin 34 pg (26-34); Mean Corpuscular Volume 99 fL (80-100); Monocytes Percent Auto 3.3 % (0.0-11.0); Neutrophils Percent Auto 90.4 % (42.0-72.0); Platelet Count* 217 K/uL (140-440); RDW Coefficient of Variation % 12.3 % (11.5-15.5); Red Blood Count 3.41 m/uL (4.00-5.20); White Blood Count* 14.55 K/uL (4.50-11.00)
[2022-01-21 07:35] LABS: Slide Review Reflex No
[2022-01-21 07:37] LABS: Potassium* 4.1 mmol/L (3.6-5.1); Sodium* 138 mmol/L (135-149)
[2022-01-21 07:40] LABS: Creatinine* 0.6 mg/dL (0.5-1.5); Est. Creatinine Clearance* 41.33; Estimated Glomerular Filt Rate 93 ml/min
[2022-01-21 07:41] LABS: Blood Urea Nitrogen* 15 mg/dL (7-30)
[2022-01-21] MEDS: CELECOXIB 200 MG CAPSULE PO (08:43)
[2022-01-21] MEDS: SENNOSIDES 1 TAB TABLET 2 TAB PO (08:45)
[2022-01-21] MEDS: ASPIRIN 81 MG TABLET EC PO (08:46)
--- NOTE | 2022-01-21 09:06 | P.ORCN_ITS ---
History of Present Illness HPI Chief complaint: Left Total Knee [facility] Medical History (Updated 01/20/22 @ 16:40 by Pasquale Gallardo MD) Bladder prolapse Dystonia Encounter for counseling regarding advance directives (02/08/19) History of cataract HTN (hypertension) Hyperlipidemia Left bundle branch block Osteoarthritis Pernicious anemia Sciatica Surgical History (Updated 01/20/22 @ 16:36 by Pasquale Gallardo MD) History of breast biopsy (03/03/13) History of hysterectomy (02/23/12) History of spinal fusion (~10/2020) History of tonsillectomy History of total left knee replacement Family History Mother Stroke, Onset Age: 63 Sister Leukemia Coagulation disorder Father Myocardial infarction, Onset Age: 72 Social History Narrative: Does not use illicit drugs Non-smoker Smoking Status: Never smoker Do you use any of these nicotine containing products: None Second hand tobacco smoke exposure: No How often do you have a drink containing alcohol: never AUDIT-C Alcohol total score: 0 Non-prescribed substance use: denies use Non-prescribed substance use details: zyrtec, benadryl, aspirin, acetaminophen Caffeine: Yes (coffee, 1 cup/day) Meds Home Medications and Allergies Home Medications Medication Instructions Recorded Confirmed Type acetaminophen 500 mg tablet 500 mg PO Q6H PRN 01/02/22 01/20/22 History (Tylenol Extra Strength) cyanocobalamin (vitamin B-12) 1,000 mcg IM .Q other Week 01/02/22 01/20/22 History 1,000 mcg/mL injection solution onabotulinumtoxinA 100 unit 100 unit IM .Q3 Months 01/02/22 01/16/22 History solution for injection fluocinolone acetonide oil 0.01 % 5 drp otic (ear) BID PRN 01/16/22 01/20/22 History ear drops fluticasone propionate 50 2 spray intranasal QDAY PRN 01/16/22 01/20/22 History mcg/actuation nasal spray,suspension losartan 50 mg tablet 50 mg PO DAILY 01/20/22 01/20/22 History Allergies Allergy/AdvReac Type Severity Reaction Status Date / Time naproxen Allergy Intermediate stomach Verified 01/16/22 08:32 upset tree and shrub pollen Allergy Intermediate runny nose Verified 01/16/22 08:33 Ortho Exam Const Vital Signs, click to edit/add: Vital Signs - 24 hr 01/20/22 10:46 01/20/22 10:52 01/20/22 10:55 Temperature Pulse Rate 63 63 64 Pulse Rate [Left Pulse Oximeter] Respiratory Rate 16 14 14 Blood Pressure 167/82 H 142/66 H 133/67 Blood Pressure [Right Arm] Pulse Oximetry 99 99 99 Oxygen Delivery Method Nasal Cannula Nasal Cannula Nasal Cannula Oxygen Flow Rate 2 2 2 01/20/22 14:29 01/20/22 15:00 01/20/22 15:05 Temperature 97.3 F L 97.4 F L Pulse Rate 62 58 L 58 L Pulse Rate [Left Pulse Oximeter] Respiratory Rate 12 12 12 Blood Pressure 106/64 127/66 140/80 H Blood Pressure [Right Arm] Pulse Oximetry 95 93 96 Oxygen Delivery Method Non Rebreather Mask Room Air Nasal Cannula Oxygen Flow Rate 6 3 01/20/22 14:35 01/20/22 14:40 01/20/22 14:45 Temperature Pulse Rate 61 59 L 52 L Pulse Rate [Left Pulse Oximeter] Respiratory Rate 13 14 12 Blood Pressure 115/62 108/67 123/66 Blood Pressure [Right Arm] Pulse Oximetry 94 100 100 Oxygen Delivery Method OxyMask OxyMask OxyMask Oxygen Flow Rate 6 6 6 01/20/22 14:50 01/20/22 15:10 01/20/22 16:17 Temperature 97.2 F L 97.2 F L Pulse Rate 56 L 58 L Pulse Rate [Left Pulse Oximeter] 71 Respiratory Rate 20 20 16 Blood Pressure 131/71 137/62 Blood Pressure [Right Arm] 144/88 H Pulse Oximetry 98 100 98 Oxygen Delivery Method OxyMask Nasal Cannula Nasal Cannula Oxygen Flow Rate 6 2 2 01/20/22 15:30 01/20/22 15:30 01/20/22 15:45 Temperature 96.9 F L 96.9 F L 96.5 F L Pulse Rate 49 L Pulse Rate [Left Pulse Oximeter] 49 L 53 L Respiratory Rate 16 14 16 Blood Pressure Blood Pressure [Right Arm] 155/57 H 155/59 H 136/74 Pulse Oximetry 97 99 Oxygen Delivery Method Room Air Room Air Room Air Oxygen Flow Rate 01/20/22 16:00 01/20/22 16:15 01/20/22 16:30 Temperature 97 F L 97 F L 97.2 F L Pulse Rate Pulse Rate [Left Pulse Oximeter] 58 L 59 L 62 Respiratory Rate 16 16 16 Blood Pressure Blood Pressure [Right Arm] 147/66 H 164/70 H 133/88 Pulse Oximetry 100 100 100 Oxygen Delivery Method Nasal Cannula Nasal Cannula Nasal Cannula Oxygen Flow Rate 2 2 2 01/20/22 17:00 01/20/22 17:30 01/20/22 19:00 Temperature 97.2 F L 97.2 F L 97.7 F Pulse Rate Pulse Rate [Left Pulse Oximeter] 70 78 70 Respiratory Rate 16 16 16 Blood Pressure Blood Pressure [Right Arm] 134/89 142/88 H 154/70 H Pulse Oximetry 96 96 96 Oxygen Delivery Method Room Air Room Air Room Air Oxygen Flow Rate 2 01/20/22 20:00 01/20/22 23:00 01/21/22 03:00 Temperature 97.7 F 97.7 F 97.7 F Pulse Rate Pulse Rate [Left Pulse Oximeter] 71 70 70 Respiratory Rate 16 16 16 Blood Pressure Blood Pressure [Right Arm] 158/74 H 128/66 128/66 Pulse Oximetry 96 95 95 Oxygen Delivery Method Room Air Room Air Room Air Oxygen Flow Rate 01/21/22 07:00 Temperature 98.0 F Pulse Rate Pulse Rate [Left Pulse Oximeter] 62 Respiratory Rate 20 Blood Pressure Blood Pressure [Right Arm] 125/59 L Pulse Oximetry 97 Oxygen Delivery Method Room Air Oxygen Flow Rate Results Labs Labs: Laboratory Results - last 48 hr 01/21/22 01/21/22 05:50 05:50 WBC 14.55 H RBC 3.41 L Hgb 11.5 L Hct 33.9 MCV 99 MCH 34 MCHC 34 RDW Coeff of Guerrero 12.3 Plt Count 217 Neut % (Auto) 90.4 H Lymph % (Auto) 5.8 L [place] % (Auto) 3.3 Eos % (Auto) 0.0 Baso % (Auto) 0.1 Neut # (Auto) 13.20 H Lymph # (Auto) 0.80 L [place] # (Auto) 0.50 Eos # (Auto) 0.00 Baso # (Auto) 0.00 Abs Immat Gran (auto) 0.06 Sodium 138 Potassium 4.1 BUN 15 Creatinine 0.6 Estimated Creat Clear 41.33 Estimated GFR 93 Assessment and Plan Assessment and plan (1) History of total left knee replacement: Status: Acute Total time spent: Total time spent is greater than 50% in coordination of care (as documented) at patient's floor/unit and/or counseling patient: (2) Family history of factor V Leiden mutation: Status: Chronic Total time spent: Total time spent is greater than 50% in coordination of care (as documented) at patient's floor/unit and/or counseling patient: (3) HTN (hypertension): Status: Chronic Total time spent: Total time spent is greater than 50% in coordination of care (as documented) at patient's floor/unit and/or counseling patient: (4) B12 deficiency anemia: Status: Chronic Total time spent: Total time spent is greater than 50% in coordination of care (as documented) at patient's floor/unit and/or counseling patient:
--- NOTE | 2022-01-21 09:07 | PM.ORPN ---
Subjective Subjective Date Seen: 01/21/22 Principal diagnosis: Status postop day 1 left total knee arthroplasty Interval history: Patient reports doing well. No acute events over night. Pain managed with scheduled /PRN medications and ice. DVT prophylaxis 81 mg aspirin by mouth twice daily (Factor 5 Leiden lab result is negative), bilateral knee high Pilo stockings, and SCDs. Denies fevers, chills, aches, N/V (nausea last night which has resolved), CP, SOB/MAY, tachycardia or lightheadedness. Ortho Exam Narrative Exam Narrative: -Patient appears comfortable in bed; no apparent acute distress -Alert and oriented times 3 -Operative knee swollen; soft tissues supple; no obvious erythema. Warmth appropriate -Surgical dressing clean, dry, intact; no obvious drainage, no erythematous streaking peripheral to the bandage -bilateral calf soft, nontender; no significant swelling, edema, tenderness, erythema, discoloration, warmth, or palpable cords -2+ DP/PT pulses, intact dermatomes and myotomes distally (5/5 strength) Const Vital Signs, click to edit/add: Vital Signs - 24 hr 01/20/22 10:46 01/20/22 10:52 01/20/22 10:55 Temperature Pulse Rate 63 63 64 Pulse Rate [Left Pulse Oximeter] Respiratory Rate 16 14 14 Blood Pressure 167/82 H 142/66 H 133/67 Blood Pressure [Right Arm] Pulse Oximetry 99 99 99 Oxygen Delivery Method Nasal Cannula Nasal Cannula Nasal Cannula Oxygen Flow Rate 2 2 2 01/20/22 14:29 01/20/22 15:00 01/20/22 15:05 Temperature 97.3 F L 97.4 F L Pulse Rate 62 58 L 58 L Pulse Rate [Left Pulse Oximeter] Respiratory Rate 12 12 12 Blood Pressure 106/64 127/66 140/80 H Blood Pressure [Right Arm] Pulse Oximetry 95 93 96 Oxygen Delivery Method Non Rebreather Mask Room Air Nasal Cannula Oxygen Flow Rate 6 3 01/20/22 14:35 01/20/22 14:40 01/20/22 14:45 Temperature Pulse Rate 61 59 L 52 L Pulse Rate [Left Pulse Oximeter] Respiratory Rate 13 14 12 Blood Pressure 115/62 108/67 123/66 Blood Pressure [Right Arm] Pulse Oximetry 94 100 100 Oxygen Delivery Method OxyMask OxyMask OxyMask Oxygen Flow Rate 6 6 6 08/22/22 14:50 01/20/22 15:10 01/20/22 16:17 Temperature 97.2 F L 97.2 F L Pulse Rate 56 L 58 L Pulse Rate [Left Pulse Oximeter] 71 Respiratory Rate 20 20 16 Blood Pressure 131/71 137/62 Blood Pressure [Right Arm] 144/88 H Pulse Oximetry 98 100 98 Oxygen Delivery Method OxyMask Nasal Cannula Nasal Cannula Oxygen Flow Rate 6 2 2 01/20/22 15:30 01/20/22 15:30 01/20/22 15:45 Temperature 96.9 F L 96.9 F L 96.5 F L Pulse Rate 49 L Pulse Rate [Left Pulse Oximeter] 49 L 53 L Respiratory Rate 16 14 16 Blood Pressure Blood Pressure [Right Arm] 155/57 H 155/59 H 136/74 Pulse Oximetry 97 99 Oxygen Delivery Method Room Air Room Air Room Air Oxygen Flow Rate 01/20/22 16:00 01/20/22 16:15 01/20/22 16:30 Temperature 97 F L 97 F L 97.2 F L Pulse Rate Pulse Rate [Left Pulse Oximeter] 58 L 59 L 62 Respiratory Rate 16 16 16 Blood Pressure Blood Pressure [Right Arm] 147/66 H 164/70 H 133/88 Pulse Oximetry 100 100 100 Oxygen Delivery Method Nasal Cannula Nasal Cannula Nasal Cannula Oxygen Flow Rate 2 2 2 01/20/22 17:00 01/20/22 17:30 01/20/22 19:00 Temperature 97.2 F L 97.2 F L 97.7 F Pulse Rate Pulse Rate [Left Pulse Oximeter] 70 78 70 Respiratory Rate 16 16 16 Blood Pressure Blood Pressure [Right Arm] 134/89 142/88 H 154/70 H Pulse Oximetry 96 96 96 Oxygen Delivery Method Room Air Room Air Room Air Oxygen Flow Rate 2 01/20/22 20:00 01/20/22 23:00 01/21/22 03:00 Temperature 97.7 F 97.7 F 97.7 F Pulse Rate Pulse Rate [Left Pulse Oximeter] 71 70 70 Respiratory Rate 16 16 16 Blood Pressure Blood Pressure [Right Arm] 158/74 H 128/66 128/66 Pulse Oximetry 96 95 95 Oxygen Delivery Method Room Air Room Air Room Air Oxygen Flow Rate 01/21/22 07:00 Temperature 98.0 F Pulse Rate Pulse Rate [Left Pulse Oximeter] 62 Respiratory Rate 20 Blood Pressure Blood Pressure [Right Arm] 125/59 L Pulse Oximetry 97 Oxygen Delivery Method Room Air Oxygen Flow Rate Assessment and Plan Assessment and plan (1) History of total left knee replacement: Problem details: POD 1 left total knee arthroplasty Status: Acute (2) Family history of factor V Leiden mutation: Problem details: Lab results negative for factor 5 Leiden disease Status: Chronic (3) HTN (hypertension): Status: Chronic (4) B12 deficiency anemia: Status: Chronic (5) Acute blood loss anemia: Problem details: Surgically related, asymptomatic Status: Acute Plan - Complete 23 hour perioperative antibiotics. - PT/OT consult for education and assistance. - Social work consult for discharge planning - Prescribed analgesics as needed - DVT prophylaxis: 81 mg aspirin by mouth twice daily, bilateral knee high Pilo Hose stockings and SCDs - Anticipation is for discharge to home with spouse (01/21/2022) if the patient remains medically stable, pain is controlled, and they are safe with mobilization.
--- NOTE | 2022-01-21 09:10 | P.DS_ITS ---
DS: Providers Provider Date Seen: 01/21/22 Date of admission: 01/20/22 med/surg recovery Primary care physician: Daphne Pike PA-C Consults: 01/20/22 16:17 Consult to Occupational Therapy [CONS] Routine Comment: Reason(s) for OT Consult:: ADLs Prior to Discharge Any Restrictions?:: See Comment Comment: See nursing activity order for any restrictions. Consult to Physical Therapy [CONS] Routine Comment: Ambulate in the murphy today. Reason(s) for PT Consult:: TKA TX Protocol POD#0 Any Restrictions?:: See Comment Comment: See nursing activity order for any restrictions. Consult to Physician [CONS] Routine Comment: Consulting Provider: Hospitalists Has provider been notified: No Consult to Consumer Sales Representative [CONS] Routine Comment: Reason for Consult:: Discharge Planning Needs Attending Physician on discharge: Braxton Sneed MD Date of Discharge: 01/21/22 DS: Diagnosis Discharge Diagnosis (1) History of total left knee replacement: Status: Acute Problem details: POD 1 left total knee arthroplasty DS: Summary Hospital Course Hospital Course: This is a 76-year-old female who underwent elective left total knee arthroplasty for severe osteoarthritis. Surgery and postoperative course were unremarkable. Her sister has factor 5 Leiden disease, and the patient herself underwent testing for this preoperatively, but the results were not back until the day of discharge. Postoperatively she was given anticoagulation for DVT prophylaxis and on the day of discharge it is now known that she is negative for factor 5 Leiden disease. She was sent home with aspirin twice a day for the postoperative period. She was discharged in stable condition. Status at Discharge Functional status at discharge: uses cane/walker Overall status at discharge: patient is progressing back to baseline Time Spent with Patient Time attestation: Total time spent providing and/or coordinating discharge services: Time spent: Less than 30 minutes Specific discharge activities: Wound: ?Do not remove original dressing; we will remove this at first postop visit in 1 week. Only remove dressing if integrity is in question. ?No immersing wound in water; showering okay; light scrub with your hand and body soap, rinse, dab dry ?Sutures are under the skin, will dissolve; allow surgical glue to come off naturally; do not scrub the wound or apply ointments/lotions ?Call our office with any redness that streaks, excessive drainage from the wound, or wound gapping. Ice/Elevate: ?Ice as needed for swelling and discomfort (cryocuff or ice pack); elevate frequently above the heart RAMIN socks: ?Wear for 1 month, remove for 1 hour 3 times per day ?These are frustrating to take on/off, but are important for blood clot prevention for 1 month after surgery Blood Clot Prevention (DVT): ?Medication: 81 mg aspirin by mouth twice daily Driving: ?Do not drive while taking narcotic pain medication ?Anticipate 4-6 weeks no driving if operative leg is driving leg Dental: ?No elective dental work for 6 months post-op. If there is an urgent/emergent dental need, contact our office for an antibiotic prescription. Smoking/Alcohol: ?Do not smoke; do no drink alcohol especially when taking postoperative oral narcotic medication Seek Care from you Primary Care Provider if you experience the following issues in the postoperative phase and beyond: ?Bacterial infections such as: pneumonia, bacterial skin infection (cellulitis), UTI, high fever, chills unrelated to the operative body part - call your primary care physician urgently for treatment in hopes to protect your health and the metal implant. Referrals: ?PT, OT per patient preference - evaluate treat total left arthroplasty protocol (the training, ROM, ADLs, knee-high Ramin socks) Follow up: ?Ortho surgeon follow-up in 6 weeks; repeat radiographs three views left knee ?PA-C visit in 1 week *If there are any acute concerns regarding your surgery, please call our orthopedic clinic ([phone]) Exam Const: Vital Signs, click to edit/add: Vital Signs - 24 hr 01/20/22 10:46 01/20/22 10:52 01/20/22 10:55 Temperature Pulse Rate 63 63 64 Pulse Rate [Left P ulse Oximeter] Respiratory Rate 16 14 14 Blood Pressure 167/82 H 142/66 H 133/67 Blood Pressure [Ri ght Arm] Pulse Oximetry 99 99 99 Oxygen Delivery Me thod Nasal Cannula Nasal Cannula Nasal Cannula Oxygen Flow Rate 2 2 2 01/20/22 14:29 01/20/22 15:00 01/20/22 15:05 Temperature 97.3 F L 97.4 F L Pulse Rate 62 58 L 58 L Pulse Rate [Left P ulse Oximeter] Respiratory Rate 12 12 12 Blood Pressure 106/64 127/66 140/80 H Blood Pressure [Ri ght Arm] Pulse Oximetry 95 93 96 Oxygen Delivery Me thod Non Rebreather Mas k Room Air Nasal Cannula Oxygen Flow Rate 6 3 01/20/22 14:35 01/20/22 14:40 01/20/22 14:45 Temperature Pulse Rate 61 59 L 52 L Pulse Rate [Left P ulse Oximeter] Respiratory Rate 13 14 12 Blood Pressure 115/62 108/67 123/66 Blood Pressure [Ri ght Arm] Pulse Oximetry 94 100 100 Oxygen Delivery Me thod OxyMask OxyMask OxyMask Oxygen Flow Rate 6 6 6 01/20/22 14:50 01/20/22 15:10 01/20/22 16:17 Temperature 97.2 F L 97.2 F L Pulse Rate 56 L 58 L Pulse Rate [Left P ulse Oximeter] 71 Respiratory Rate 20 20 16 Blood Pressure 131/71 137/62 Blood Pressure [Ri ght Arm] 144/88 H Pulse Oximetry 98 100 98 Oxygen Delivery Me thod OxyMask Nasal Cannula Nasal Cannula Oxygen Flow Rate 6 2 2 01/20/22 15:30 01/20/22 15:30 01/20/22 15:45 Temperature 96.9 F L 96.9 F L 96.5 F L Pulse Rate 49 L Pulse Rate [Left P ulse Oximeter] 49 L 53 L Respiratory Rate 16 14 16 Blood Pressure Blood Pressure [Ri ght Arm] 155/57 H 155/59 H 136/74 Pulse Oximetry 97 99 Oxygen Delivery Me thod Room Air Room Air Room Air Oxygen Flow Rate 01/20/22 16:00 01/20/22 16:15 01/20/22 16:30 Temperature 97 F L 97 F L 97.2 F L Pulse Rate Pulse Rate [Left P ulse Oximeter] 58 L 59 L 62 Respiratory Rate 16 16 16 Blood Pressure Blood Pressure [Ri ght Arm] 147/66 H 164/70 H 133/88 Pulse Oximetry 100 100 100 Oxygen Delivery Me thod Nasal Cannula Nasal Cannula Nasal Cannula Oxygen Flow Rate 2 2 2 01/20/22 17:00 01/20/22 17:30 01/20/22 19:00 Temperature 97.2 F L 97.2 F L 97.7 F Pulse Rate Pulse Rate [Left P ulse Oximeter] 70 78 70 Respiratory Rate 16 16 16 Blood Pressure Blood Pressure [Ri ght Arm] 134/89 142/88 H 154/70 H Pulse Oximetry 96 96 96 Oxygen Delivery Me thod Room Air Room Air Room Air Oxygen Flow Rate 2 01/20/22 20:00 01/20/22 23:00 01/21/22 03:00 Temperature 97.7 F 97.7 F 97.7 F Pulse Rate Pulse Rate [Left P ulse Oximeter] 71 70 70 Respiratory Rate 16 16 16 Blood Pressure Blood Pressure [Ri ght Arm] 158/74 H 128/66 128/66 Pulse Oximetry 96 95 95 Oxygen Delivery Me thod Room Air Room Air Room Air Oxygen Flow Rate 01/21/22 07:00 Temperature 98.0 F Pulse Rate Pulse Rate [Left P ulse Oximeter] 62 Respiratory Rate 20 Blood Pressure [facility] 125/59 L Pulse Oximetry 97 Oxygen Delivery Me thod Room Air Oxygen Flow Rate DS: Data Data Completed and Pending Labs on day of discharge: Labs from last 24 hours 01/21/22 01/21/22 05:50 05:50 WBC 14.55 H RBC 3.41 L Hgb 11.5 L Hct 33.9 MCV 99 MCH 34 MCHC 34 RDW Coeff of Guerrero 12.3 Plt Count 217 Neut % (Auto) 90.4 H Lymph % (Auto) 5.8 L [place] % (Auto) 3.3 Eos % (Auto) 0.0 Baso % (Auto) 0.1 Neut # (Auto) 13.20 H Lymph # (Auto) 0.80 L [place] # (Auto) 0.50 Eos # (Auto) 0.00 Baso # (Auto) 0.00 Abs Immat Gran (auto) 0.06 Sodium 138 Potassium 4.1 BUN 15 Creatinine 0.6 Estimated Creat Clear 41.33 Estimated GFR 93 Discharge Plan Discharge Disposition: Home, Self-Care Discharging Surgeon: Braxton Sneed Follow-Up Appointment: One week with KAYDEN Prescriptions: New celecoxib 200 mg capsule 200 mg PO BID Qty: 60 0RF aspirin 81 mg tablet,delayed release (DR/EC) 81 mg PO BID Qty: 60 0RF Rx Instructions: Medication to help prevent blood clots postoperatively; take TWICE daily. sennosides-docusate sodium [Senna-S] 8.6-50 mg tablet 1 - 2 tab-cap PO BID PRN (Reason: constipation) Qty: 60 0RF Rx Instructions: Hold medication if experiencing loose stools. oxycodone 5 mg tablet 2.5 - 5 mg PO Q4-6H MDD 6 PRN (Reason: pain) Qty: 42 0RF Rx Instructions: Take as needed for postop pain: 2.5mg mild pain, 5mg moderate-severe pain; wean as tolerated. Continued cyanocobalamin (vitamin B-12) 1,000 mcg/mL solution 1,000 mcg IM .Q other Week onabotulinumtoxinA 100 unit recon soln 100 unit IM .Q3 Months Rx Instructions: Dr. Franz at [place] (Botox) acetaminophen [Tylenol Extra Strength] 500 mg tablet 500 mg PO Q6H PRN fluocinolone acetonide oil 0.01 % drops 5 drp otic (ear) BID PRN fluticasone propionate 50 mcg/actuation spray,suspension 2 spray intranasal QDAY PRN Rx Instructions: administer into each nostril losartan 50 mg tablet 50 mg PO DAILY Activity Level: Activity as Tolerated, Weight Bearing as Tolerated, Use Cane and Use Walker Discharge Diet: Regular Patient Instructions: Aspirin (By mouth), Oxycodone, Rapid Release (By mouth), Celecoxib (By mouth), Senna (By mouth) (Sen, Senna-lax), Knee Replacement (DC) Forms: Work/Release Restrictions Follow-up: Shelia Moreno PA-C [Physician Cell Operation Supervisor] - 01/28/22 2:00 pm (At the [facility] Daphne Pike PA-C [Primary Care Provider] - (Patient can call and schedule as needed.) Discharge Orders: Discharge Order (Routine); Ordered 01/21/22 Ordered By: Pawan Moran
--- NOTE | 2022-01-21 10:26 | P.DS_ITS ---
DS: Providers Provider Time Seen by Provider: 08: Date Seen: 01/21/22 Primary care physician: Daphne Pike PA-C Consults: 01/20/22 16:17 Consult to Occupational Therapy [CONS] Routine Comment: Reason(s) for OT Consult:: ADLs Prior to Discharge Any Restrictions?:: See Comment Comment: See nursing activity order for any restrictions. Consult to Physical Therapy [CONS] Routine Comment: Ambulate in the murphy today. Reason(s) for PT Consult:: TKA TX Protocol POD#0 Any Restrictions?:: See Comment Comment: See nursing activity order for any restrictions. Consult to Physician [CONS] Routine Comment: Consulting Provider: Hospitalists Has provider been notified: No Consult to Clinical Nurse [CONS] Routine Comment: Reason for Consult:: Discharge Planning Needs Attending Physician on discharge: Braxton Sneed MD Date of Discharge: 01/21/22 DS: Diagnosis Discharge Diagnosis (1) History of total left knee replacement: Status: Acute Problem details: POD 1 left total knee arthroplasty (2) Family history of factor V Leiden mutation: Status: Chronic Problem details: Lab results negative for factor 5 Leiden disease; Cristina is negative for Factor V Leiden (3) HTN (hypertension): Status: Chronic (4) Hyperlipidemia: Status: Acute DS: Summary Hospital Course Hospital Course: This is a 76-year-old female who underwent elective left total knee arthroplasty for severe osteoarthritis. Surgery and postoperative course were unremarkable. Her sister has factor 5 Leiden disease, and the patient herself underwent testing for this preoperatively, but the results were not back until the day of discharge. Postoperatively she was given anticoagulation for DVT prophylaxis and on the day of discharge it is now known that she is negative for factor 5 Leiden disease. She was sent home with aspirin twice a day for the postoperative period. She was discharged in stable condition. Time Spent with Patient Time attestation: Total time spent providing and/or coordinating discharge services: Exam Narrative: Exam Narrative: General: No acute distress. Awake, alert, oriented x3. No pallor. No catracho dice. Oropharynx: Clear. Mucous membranes moist. Cardiovascular: Regular rate and rhythm. No murmurs, gallops, or rubs. Respiratory: Clear to auscultation bilaterally. No wheezes or crackles. Abdomen: Bowel sounds present. Soft, nondistended, nontender. Extremities: Left knee bandage is clean, dry and intact. Const: Vital Signs, click to edit/add: Vital Signs - 24 hr 01/20/22 10:46 01/20/22 10:52 01/20/22 10:55 Temperature Pulse Rate 63 63 64 Pulse Rate [Left P ulse Oximeter] Respiratory Rate 16 14 14 Blood Pressure 167/82 H 142/66 H 133/67 Blood Pressure [Ri ght Arm] Pulse Oximetry 99 99 99 Oxygen Delivery Me thod Nasal Cannula Nasal Cannula Nasal Cannula Oxygen Flow Rate 2 2 2 01/20/22 14:29 01/20/22 15:00 01/20/22 15:05 Temperature 97.3 F L 97.4 F L Pulse Rate 62 58 L 58 L Pulse Rate [Left P ulse Oximeter] Respiratory Rate 12 12 12 Blood Pressure 106/64 127/66 140/80 H Blood Pressure [Ri ght Arm] Pulse Oximetry 95 93 96 Oxygen Delivery Me thod Non Rebreather Mas k Room Air Nasal Cannula Oxygen Flow Rate 6 3 01/20/22 14:35 01/20/22 14:40 01/20/22 14:45 Temperature Pulse Rate 61 59 L 52 L Pulse Rate [Left P ulse Oximeter] Respiratory Rate 13 14 12 Blood Pressure 115/62 108/67 123/66 Blood Pressure [Ri ght Arm] Pulse Oximetry 94 100 100 Oxygen Delivery Me thod OxyMask OxyMask OxyMask Oxygen Flow Rate 6 6 6 01/20/22 14:50 01/20/22 15:10 01/20/22 16:17 Temperature 97.2 F L 97.2 F L Pulse Rate 56 L 58 L Pulse Rate [Left P ulse Oximeter] 71 Respiratory Rate 20 20 16 Blood Pressure 131/71 137/62 Blood Pressure [Ri ght Arm] 144/88 H Pulse Oximetry 98 100 98 Oxygen Delivery Me thod OxyMask Nasal Cannula Nasal Cannula Oxygen Flow Rate 6 2 2 01/20/22 15:30 01/20/22 15:30 01/20/22 15:45 Temperature 96.9 F L 96.9 F L 96.5 F L Pulse Rate 49 L Pulse Rate [Left P ulse Oximeter] 49 L 53 L Respiratory Rate 16 14 16 Blood Pressure Blood Pressure [Ri ght Arm] 155/57 H 155/59 H 136/74 Pulse Oximetry 97 99 Oxygen Delivery Me thod Room Air Room Air Room Air Oxygen Flow Rate 01/20/22 16:00 01/20/22 16:15 01/20/22 16:30 Temperature 97 F L 97 F L 97.2 F L Pulse Rate Pulse Rate [Left P ulse Oximeter] 58 L 59 L 62 Respiratory Rate 16 16 16 Blood Pressure Blood Pressure [Ri ght Arm] 147/66 H 164/70 H 133/88 Pulse Oximetry 100 100 100 Oxygen Delivery Me thod Nasal Cannula Nasal Cannula Nasal Cannula Oxygen Flow Rate 2 2 2 01/20/22 17:00 01/20/22 17:30 01/20/22 19:00 Temperature 97.2 F L 97.2 F L 97.7 F Pulse Rate Pulse Rate [Left P ulse Oximeter] 70 78 70 Respiratory Rate 16 16 16 Blood Pressure Blood Pressure [Ri ght Arm] 134/89 142/88 H 154/70 H Pulse Oximetry 96 96 96 Oxygen Delivery Me thod Room Air Room Air Room Air Oxygen Flow Rate 2 01/20/22 20:00 01/20/22 23:00 01/21/22 03:00 Temperature 97.7 F 97.7 F 97.7 F Pulse Rate Pulse Rate [Left P ulse Oximeter] 71 70 70 Respiratory Rate 16 16 16 Blood Pressure Blood Pressure [Ri ght Arm] 158/74 H 128/66 128/66 Pulse Oximetry 96 95 95 Oxygen Delivery Me thod Room Air Room Air Room Air Oxygen Flow Rate 01/21/22 07:00 Temperature 98.0 F Pulse Rate Pulse Rate [Left P ulse Oximeter] 62 Respiratory Rate 20 Blood Pressure Blood Pressure [Ri ght Arm] 125/59 L Pulse Oximetry 97 Oxygen Delivery Me thod Room Air Oxygen Flow Rate DS: Data Data Completed and Pending Completed studies during hospitalization: Ordering Physician: Braxton Sneed M.D. Date of Service: 01/20/22 Procedure(s): XR knee LT 2V Accession Number(s): [id number] cc: Braxton Sneed M.D.; Daphne Pike PA-C~ For Patients: As a result of the Cures Act, medical imaging exams and procedure reports are released immediately into your electronic medical record. You may view this report before your referring provider. If you have questions, please contact your health care provider. Indication: Postop Technique: Two views left knee Findings/Impression: Hardware from a left total knee arthroplasty is in satisfactory position. Bone alignment is normal. No sign of acute fracture. Postop changes are within normal limits. Dictated by Dougie Willingham MD @ 01/20/2022 3:16:45 PM (Electronically Signed) Labs on day of discharge: Labs from last 24 hours 01/21/22 01/21/22 05:50 05:50 WBC 14.55 H RBC 3.41 L Hgb 11.5 L Hct 33.9 MCV 99 MCH 34 MCHC 34 RDW Coeff of Guerrero 12.3 Plt Count 217 Neut % (Auto) 90.4 H Lymph % (Auto) 5.8 L [place] % (Auto) 3.3 Eos % (Auto) 0.0 Baso % (Auto) 0.1 Neut # (Auto) 13.20 H Lymph # (Auto) 0.80 L [place] # (Auto) 0.50 Eos # (Auto) 0.00 Baso # (Auto) 0.00 Abs Immat Gran (auto) 0.06 Sodium 138 Potassium 4.1 BUN 15 Creatinine 0.6 Estimated Creat Clear 41.33 Estimated GFR 93 Additional Comments Additional comments: Specimen: [id number] COMP Collected: 01/16/22 Received: 01/16/[address]: aRine Obrien M.D. Other Dr: Test Result Flag Reference Site *Factor V Mut FACV Specimen Whole Blood AR Factor V Mutate Negative AR Discharge Plan Discharge Disposition: Home, Self-Care Discharging Surgeon: Braxton Sneed Follow-Up Appointment: One week with PA Prescriptions: New celecoxib 200 mg capsule 200 mg PO BID Qty: 60 0RF aspirin 81 mg tablet,delayed release (DR/EC) 81 mg PO BID Qty: 60 0RF Rx Instructions: Medication to help prevent blood clots postoperatively; take TWICE daily. sennosides-docusate sodium [Senna-S] 8.6-50 mg tablet 1 - 2 tab-cap PO BID PRN (Reason: constipation) Qty: 60 0RF Rx Instructions: Hold medication if experiencing loose stools. oxycodone 5 mg tablet 2.5 - 5 mg PO Q4-6H MDD 6 PRN (Reason: pain) Qty: 42 0RF Rx Instructions: Take as needed for postop pain: 2.5mg mild pain, 5mg moderate-severe pain; wean as tolerated. Continued cyanocobalamin (vitamin B-12) 1,000 mcg/mL solution 1,000 mcg IM .Q other Week onabotulinumtoxinA 100 unit recon soln 100 unit IM .Q3 Months Rx Instructions: Dr. Franz at [facility] (Botox) acetaminophen [Tylenol Extra Strength] 500 mg tablet 500 mg PO Q6H PRN fluocinolone acetonide oil 0.01 % drops 5 drp otic (ear) BID PRN fluticasone propionate 50 mcg/actuation spray,suspension 2 spray intranasal QDAY PRN Rx Instructions: administer into each nostril losartan 50 mg tablet 50 mg PO DAILY Activity Level: Activity as Tolerated, Weight Bearing as Tolerated, Use Cane and Use Walker Discharge Diet: Regular Patient Instructions: Aspirin (By mouth), Oxycodone, Rapid Release (By mouth), Celecoxib (By mouth), Senna (By mouth) (Sen, Senna-lax), Knee Replacement (DC) Forms: Work/Release Restrictions Follow-up: Shelia Moreno PA-C [Physician Accident Examiner] - 01/28/22 2:00 pm (At the [facility].) Daphne Pike PA-C [Primary Care Provider] - (Patient can call and schedule as needed.) Discharge Orders: Discharge Order (Routine); Ordered 01/21/22 Ordered By: Pawan Moran
== END 2022-01-21 12:30 | disposition home or self-care (01) ==
LOC: OR 08:22 → MEDSURG 01-21 07:48
PROVIDERS: PCP Physician Assistant Medical; Visit Provider Orthopaedic Surgery Sports Medicine
PROC: (CPT 27447; principal; 2022-01-20 12:00)
DX: M17.12 Unilateral primary osteoarthritis, left knee (principal); I10 Essential (primary) hypertension; E78.5 Hyperlipidemia, unspecified; I44.7 Left bundle-branch block, unspecified; G24.9 Dystonia, unspecified; D51.9 Vitamin B12 deficiency anemia, unspecified; Z83.2 Family history of diseases of the blood and blood-forming organs and certain disorders involving the immune mechanism; D62 Acute posthemorrhagic anemia
CPT/HCPCS: 27447; 1402; 36415; 64447; 64454; 73560; 76942; 82565; 84132; 84295; 84520; 85025; 97110; 97116; 97161; 97165; 97535; 99100; A9270; C1776; J0690; J1100; J2250; J2405; J2704; J2795; J3010; J7120

== ENCOUNTER 2022-04-10 13:00 | Outpatient (RCR) | payer MEDICARE, BC, SELFPAY | END 2022-04-10 14:45 | disposition home or self-care (01) | PROVIDERS: PCP Physician Assistant Medical; Visit Provider Orthopaedic Surgery Sports Medicine | DX: Z96.652 Presence of left artificial knee joint (principal); Z51.89 Encounter for other specified aftercare | CPT/HCPCS: 97110; 97116; 97140; 97162; 97530 ==

== ENCOUNTER 2023-01-19 08:15 | Outpatient (RCR) | payer MEDICARE, BC, SELFPAY | END 2023-01-21 15:49 | disposition home or self-care (01) | PROVIDERS: PCP Physician Assistant Medical; Visit Provider Physician Assistant Medical | DX: R26.89 Other abnormalities of gait and mobility (principal); M23.50 Chronic instability of knee, unspecified knee; Z51.89 Encounter for other specified aftercare | CPT/HCPCS: 97110; 97116; 97161 ==

== ENCOUNTER 2023-03-22 10:00 | Outpatient (CLI) | payer MEDICARE, BC, SELFPAY | END 2023-03-22 10:01 | disposition home or self-care (01) | LOC: NFLDREF 03-26 13:58 | PROVIDERS: PCP Physician Assistant Medical; Referring Provider Physician Assistant Medical; Visit Provider Nurse Practitioner Family | DX: R39.9 Unspecified symptoms and signs involving the genitourinary system (principal); B02.9 Zoster without complications; R21 Rash and other nonspecific skin eruption | CPT/HCPCS: 87086 ==

== ENCOUNTER 2023-05-11 09:46 | Outpatient (CLI) | payer MEDICARE, BC, SELFPAY | END 2023-05-11 09:47 | disposition home or self-care (01) | LOC: FRMREF 09:46 | PROVIDERS: PCP Physician Assistant Medical; Visit Provider Physician Assistant Medical | DX: J32.9 Chronic sinusitis, unspecified (principal) | CPT/HCPCS: 82607 ==

== ENCOUNTER 2023-06-08 14:44 | Outpatient (CLI) | payer MEDICARE, BC, SELFPAY ==
--- NOTE | 2023-06-08 14:40 | CRLHL7_ITS ---
For Patients: As a result of the Century Cures Act, medical imaging exams and procedure reports are released immediately into your electronic medical record. You may view this report before your referring provider. If you have questions, please contact your health care provider. BILATERAL SCREENING MAMMOGRAM WITH COMPUTER-AIDED DETECTION AND TOMOSYNTHESIS TECHNIQUE: CC and MLO views were obtained. These mammographic images have been obtained using full-field digital technique. These mammographic images were interpreted with the benefit of computer-aided detection. Breast Tomosynthesis was used in this interpretation. COMPARISON FILM: 12/19/21, 06/04/18, 04/28/17. FINDINGS: There are scattered areas of fibroglandular density IMPRESSION: There is no radiographic evidence for malignancy. ASSESSMENT: BI-RADS Category 1: Negative RECOMMENDATION: Routine screening mammogram in 1 year. A lay language report of this examination will be provided to the patient. Kavon Nevarez M.D. Diagnostic/Nuclear Medicine Radiologist [email or web address] LANEY/Dictated by: Kavon Nevarez MD @ 06/09/2023 9:04:00 AM (Electronically Signed)
== END 2023-06-08 14:45 | disposition home or self-care (01) ==
LOC: MAMMO 14:46
PROVIDERS: PCP Physician Assistant Medical; Visit Provider Physician Assistant Medical
DX: Z12.31 Encounter for screening mammogram for malignant neoplasm of breast (principal)
CPT/HCPCS: 77063; 77067

== ENCOUNTER 2023-08-10 10:30 | Outpatient (RCR) | payer MEDICARE, BC, SELFPAY ==
--- NOTE | 2023-06-15 12:58 | PT.OPE ---
PT [place] Outpatient Eval PT [facility] Outpatient Eval Start: 06/15/23 09:17 Freq: Status: Active Protocol: Document 06/15/23 12:51 CJT (Rec: 06/15/23 12:53 CJT [id number]) E-signed By Laith Blanca PT Physical Therapy Outpatient Evaluation Insurance Information Recert Due Date 09/13/23 Insurance Name Medicare B,[employer] Medical Diagnosis Strain R muscle tendon lower leg Treating Diagnosis M25.561 - R knee pain M25.671 - R knee stiffness Referring Braxton Leal MD Subjective Subjective Pt presents with complaints of R knee pain. Pt reports her pain came on about 2 weeks ago of insidious onset and started in the hamstring and gastroc but is now located medial to the patella. She reports her R LE is feels weaker than her L while ambulating. Pt reports stairs are painful and she is having to take them one at a time. Pain Comments 10/08 Date of Last Physician Visit 06/11/23 Current Work Status Retired Preferred Name Cristina Precautions Therapy Limitations/Systems Review Not Limited Objective Other/Pertinent Objective Lumbar ROM Extension - no limitations, reports mild stiffness Flexion - can reach floor with slight bend in knees R/L Side Bend - equal bilaterally, WNL, some stiffness noted R/L Rotation - equal bilaterally, WNL R knee ROM: 5-119 L knee ROM: 2-117 R ankle DF(kf)/DF(ke) - 9/9 * feels stretch/pain behind R knee with leg extended R Hip Strength Flexion - 4/5 MMT Abduction - 3+/5 MMT IR - 4/5 MMT ER - 4/5 MMT L Hip Strength Flexion - 4/5 MMT Abduction - 3+/5 MMT IR - 4/5 MMT ER - 4/5 MMT R knee Extension - 5/5 MMT R Knee Flexion - 5/5 MMT L knee Extension - 5/5 MMT L knee Flexion - 5/5 MMT R ankle DF - 4/5 MMT *feels pain behind R knee with testing R ankle PF - unable to perform SL heel raise through full ROM L ankle DF - 5/5 MMT Palpation: pt reports pain/ tenderness with palpation to R knee medial joint line, proximal gastroc Gait: antalgic gait R, lack of full knee extension on R Slump: negative B SLR: negative B KIMBERLY: positive B, feels a strong stretch in posterior hip FADIR: negative Valgus Stress: negative R Varus Stress: negative R SL Balance: able to balance 10 seconds with UE assistance Assessment Assessment/Impression Cristina is a very pleasant 78 year old female who presents to our clinic for evaluation and treatment of R knee pain. Pts pain started in posterior knee (hamstring to proximal gastroc) and has moved to medial knee along the joint line. Testing today for disc herniating was negative for reproduction of this pain. Testing reveals deficits in pts LE strength and ROM. She will benefit from continued stretching and strengthening exercises to help provide additional stabilization to her R knee. The nature of the pts condition was explained and all questions were answered to the pts satisfaction. Skilled PT services are medically necessary to address deficits and return patient to highest level of function. Recommend physical therapy sessions 2/ week for 4-6 weeks. Pt agrees with this plan. Printout of HEP was given for I completion and pt gives verbal understanding of each exercise . Primary Functional Limitations Walking, stairs, transfers Plan of Care Rehabilitation Potential Good Physical Therapy Goals STG - To be completed in 2-3 weeks: 1. Pt will report reduction in R knee pain by factor of 2 so that she may ambulate with manageable level of pain. LTG - To be completed in 6 weeks: 1. Pt to be I with HEP so that she may I manage progression of symptoms. 2. Pt will demo ability to ascend/descend steps with marking time pattern and no use of hands so that she may return to walking stairs for exercises and maintain LE strength. 3. Pt will demo 5/5 MMT for all LE motions bilaterally to provide greater stability to knees and hips with activities including stairs, ambulation, and transfers. Treatment Plan/Direct Interventions Electrical Stimulation,Gait Training,Heat,Ice/Cold/ Vasopneumatic,Joint Mobilization,Manual Therapy, Neuromuscular Re-ed,Self-Care/ Home Management,Therapeutic Activities,Therapeutic Exercises,Ultrasound Frequency/Duration 2/week for 4-6 weeks Patient Will Be Discharged From Therapy Completion of LTG(s),Skills Plateau,Independent w/HEP, Independently Progressing Evaluation Billing Untimed Code Treatment Minutes 45 PT Eval No Charge No Complexity Low Certification Information Initial Certification Date 06/15/23 Ending Certification Date 09/13/23 Provider Signature Shows Agreement With POC & Medical Necessity Physician Signature & Date Requested Please Sign/Date Here Physician Comment/Change : Physician NPI Number #
== END 2023-10-27 15:22 | disposition home or self-care (01) ==
PROVIDERS: PCP Physician Assistant Medical; Visit Provider Orthopaedic Surgery Sports Medicine
DX: S86.111A Strain of other muscle(s) and tendon(s) of posterior muscle group at lower leg level, right leg, initial encounter (principal); M25.561 Pain in right knee; M25.671 Stiffness of right ankle, not elsewhere classified; Z51.89 Encounter for other specified aftercare
CPT/HCPCS: 97110; 97140; 97161

== ENCOUNTER 2023-10-27 12:44 | Outpatient (CLI) | payer MEDICARE, BC, SELFPAY | END 2023-10-27 12:45 | disposition home or self-care (01) | PROVIDERS: PCP Physician Assistant Medical; Visit Provider Physician Assistant Medical | DX: D51.9 Vitamin B12 deficiency anemia, unspecified (principal); E55.9 Vitamin D deficiency, unspecified; R79.89 Other specified abnormal findings of blood chemistry; R53.83 Other fatigue; Z13.29 Encounter for screening for other suspected endocrine disorder | CPT/HCPCS: 80053; 82306; 82607; 84443 ==

== ENCOUNTER 2024-02-26 09:55 | Emergency (ER) | payer MEDICARE, BC, SELFPAY ==
[2024-02-26 09:59] VITALS: BP 153/88; PULSE 76; RESP 18; TEMP 36.2; O2SAT 96; BMI 29.2
--- NOTE | 2024-02-26 10:24 | ED.GENADULT ---
HPI - General Adult General Chief complaint: Hypertension Stated complaint: high blood pressure Time Seen by Provider: 02/26/24 10:00 Source: patient Mode of arrival: ambulatory Limitations: no limitations History of Present Illness HPI narrative: Cristina is a marli 79-year-old female coming in today with concerns about elevated blood pressure and feeling lightheaded. Patient has been checking blood pressures regularly and they are in the 150s systolic over 80s to 90s diastolic generally. She has a couple readings were her blood pressures in the 160s systolic. She states that in the mornings when she gets up she feels a little bit lightheaded, she denies any vertiginous symptoms. She states that she has to get up go to the bathroom and then that feeling goes away and she gets on the rest of her day without any problems. Patient is very concerned today that her blood pressure is causing her symptoms and her clinic told her to come to the emergency room for evaluation. She denies any headaches, chest pain or abdominal pain. She is not short of breath. She does have chronic rhinorrhea and allergies for which she takes Benadryl and Zyrtec p.r.n.. She does have a nasal spray which she has not been using. He she has not had any fevers or chills. No changes in her appetite. She has no difficulty walking, speaking or doing her norm daily activities. She denies any urinary symptoms, diarrhea or constipation. She denies any rashes or sick contacts. She does have arthritis which causes her joint pains, this is not new and has been evaluated in the past. Related Data Home Medications ?Medication ?Instructions ?Recorded ?Confirmed acetaminophen 500 mg tablet 500 mg PO Q6H PRN 01/02/22 01/14/24 (Tylenol Extra Strength) cyanocobalamin (vitamin B-12) 1,000 mcg IM .Q other Week 01/02/22 01/14/24 1,000 mcg/mL injection solution onabotulinumtoxinA 100 unit 100 unit IM .Q3 Months 01/02/22 01/14/24 solution for injection cholecalciferol (vitamin D3) 125 125 mcg PO QDAY 10/30/22 01/14/24 mcg (5,000 unit) capsule ipratropium bromide 21 mcg (0.03 1 - 2 spray intranasal PRN 12/28/23 01/14/24 %) nasal spray prednisone 20 mg tablet 20 mg PO QDAY PRN 01/14/24 01/14/24 Previous Rx's ?Medication ?Instructions ?Recorded losartan 25 mg tablet 25 mg PO BID #60 tabs 12/28/23 Allergies Allergy/AdvReac Type Severity Reaction Status Date / Time naproxen Allergy Intermediate stomach Verified 01/14/24 13:05 upset tree and shrub pollen Allergy Intermediate runny nose Verified 01/14/24 13:05 Review of Systems Status of ROS: Reports: 10 or more systems reviewed and unremarkable except as noted in History and below [facility] Medical History Bronchitis ?J40 - Bronchitis, not specified as acute or chronic (ICD-10) Shingles ?B02.9 - Zoster without complications (ICD-10) Weakness of left lower extremity ?R29.898 - Other symptoms and signs involving the musculoskeletal system (ICD-10) Acute blood loss anemia ?D62 - Acute posthemorrhagic anemia (ICD-10) Family history of factor V Leiden mutation ?Z83.2 - Family history of diseases of the blood and blood-forming organs and certain disorders involving the immune mechanism (ICD-10) Bladder prolapse Dystonia ?G24.9 - Dystonia, unspecified (ICD-10) Sciatica ?M54.30 - Sciatica, unspecified side (ICD-10) History of cataract ?Z86.69 - Personal history of other diseases of the nervous system and sense organs (ICD-10) Surgical History 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) ?Z96.652 - Presence of left artificial knee joint (ICD-10) History of surgery ?Z98.890 - Other specified postprocedural states (ICD-10) History of spinal fusion (~10/2020) ?Z98.1 - Arthrodesis status (ICD-10) History of tonsillectomy ?Z90.89 - Acquired absence of other organs (ICD-10) History of hysterectomy (02/23/12) ?Z90.710 - Acquired absence of both cervix and uterus (ICD-10) History of breast biopsy (03/03/13) ?Z98.890 - Other specified postprocedural states (ICD-10) Family History Mother Stroke, Onset Age: 63 Sister Leukemia Coagulation disorder Father Myocardial infarction, Onset Age: 72 Social History Narrative: Does not use illicit drugs Non-smoker What is your current living situation?: I presently have a place to live Problems where you live: no known problems In the past 12 months, utilities in danger of being shut off: no In past 12 months, lack of transportation kept you from medical appts, meetings, work, or getting things needed for daily living: no In the past 12 mos, have been you worried that your food would run out before you had money to buy more?: never true In the past 12 mos, the food you bought just didn't last and you didn't have money to buy more?: never true Smoking Status: Never smoker Do you use any of these nicotine containing products: None Second hand tobacco smoke exposure: No How often do you have a drink containing alcohol: never AUDIT-C Alcohol total score: 0 Non-prescribed substance use: denies use Non-prescribed substance use details: zyrtec, benadryl, aspirin, acetaminophen Caffeine: Yes (coffee, 1 cup/day) How often does anyone, including family, friends and others, physically hurt you: never How often does anyone, including family, friends and others, insult or talk down to you: never How often does anyone, including family, friends and others, threaten you with harm: never How often does anyone, including family, friends and others, scream or curse at you: never Little interest or pleasure in doing things: not at all Feeling down, depressed, or hopeless: not at all Exam Narrative: Exam Narrative: Well-nourished well-developed patient in no acute distress. Alert and oriented. Answers questions appropriately. Mood and affect are appropriate. Thoughts are goal oriented and rational. No tangential or magical thinking noted. Patient speaks in full sentences without needing to catch her breath. Speech is not slurred or pressured, face is symmetric. HEENT: Normocephalic atraumatic. Pupils are equally round reactive to light. Extraocular muscles are intact. Conjunctivae are moist without any icterus noted. Moist mucous membranes. Posterior pharynx is normal. Neck is soft. Cardiovascular: Heart is regular rate and rhythm S1 and S2 are present without any murmurs. Lungs: Clear to auscultation bilaterally no wheezes rhonchi or rales are appreciated. Patient takes deep breaths without any discomfort. Abdomen: Soft and nontender nondistended with normal bowel sounds. Skin: Well perfused without any obvious rashes. Normal gait. Strength is 5/5 of the upper and lower extremities. She has no nystagmus. Const: Vital Signs, click to edit/add: Vital Signs - 24 hr 02/26/24 09:59 Temperature 97.1 F L Pulse Rate [Right Pulse Oximeter] 76 Respiratory Rate 18 Blood Pressure [Ri ght Upper Arm] 153/88 H Pulse Oximetry 96 Oxygen Delivery Me thod Room Air Course Course ED Course: Went over patient's blood pressure readings together which again are generally in the 150s systolic. Vital Signs Vital signs: Initial Vital Signs Temperature 97.1 F L 02/26/24 09:59 Temperature Source Temporal Artery Scan 02/26/24 09:59 Pulse Rate 76 02/26/24 09:59 Pulse Rhythm Regular 02/26/24 09:59 Pulse Strength 3+ Normal 02/26/24 09:59 Respiratory Rate 18 02/26/24 09:59 Blood Pressure 153/88 H 02/26/24 09:59 Blood Pressure Mean 109 H 02/26/24 09:59 Blood Pressure Position Sitting 02/26/24 09:59 Pulse Oximetry 96 02/26/24 09:59 Oxygen Delivery Method Room Air 02/26/24 09:59 Vital Signs Temperature 97.1 F L 02/26/24 09:59 Pulse Rate 76 02/26/24 09:59 Respiratory Rate 18 02/26/24 09:59 Blood Pressure 153/88 H 02/26/24 09:59 Pulse Oximetry 96 02/26/24 09:59 Oxygen Delivery Method Room Air 02/26/24 09:59 Temperature 97.1 F L 02/26/24 09:59 Pulse Rate 76 02/26/24 09:59 Respiratory Rate 18 02/26/24 09:59 Blood Pressure 153/88 H 02/26/24 09:59 Pulse Oximetry 96 02/26/24 09:59 Oxygen Delivery Method Room Air 02/26/24 09:59 Medical Decision Making MDM Narrative Medical decision making narrative: 79-year-old female coming in today with concerns about her hypertension. At this time I will not make any changes to her medications, patient has a follow-up appointment with her primary care provider in 3 days and she is encouraged to keep that to have this discussion. The patient is reassured that this is not a medical emergency. Discharge Plan Discharge Clinical Impression: HTN (hypertension) Qualifiers: Hypertension type: primary hypertension Qualified Code(s): I10 - Essential (primary) hypertension Patient Disposition: Home, Self-Care Condition: Stable Additional Instructions: Your blood pressure is a little bit high, but nothing to be concerned about. I recommend that you do not check it for the rest of the weekend and follow-up with your primary care provider on Thursday to discuss any med changes as needed. Prescriptions: No Action cyanocobalamin (vitamin B-12) 1,000 mcg/mL solution 1,000 mcg IM .Q other Week onabotulinumtoxinA 100 unit recon soln 100 unit IM .Q3 Months Rx Instructions: Dr. Franz at [place] (Botox) acetaminophen [Tylenol Extra Strength] 500 mg tablet 500 mg PO Q6H PRN ipratropium bromide 21 mcg (0.03 %) spray,non-aerosol 1 - 2 spray intranasal PRN losartan 25 mg tablet 25 mg PO BID Qty: 60 0RF cholecalciferol (vitamin D3) 125 mcg (5,000 unit) capsule 125 mcg PO QDAY prednisone 20 mg tablet 20 mg PO QDAY PRN Follow Up/Referrals: Daphne Pike PA-C [Primary Care Provider] - Stand Alone Forms: [employer] Info Instructions
== END 2024-02-26 10:34 | disposition home or self-care (01) ==
LOC: ED 10:32
PROVIDERS: Emergency Provider Family Medicine; PCP Physician Assistant Medical
DX: I10 Essential (primary) hypertension (principal)
CPT/HCPCS: 99283; 99284

== ENCOUNTER 2024-03-10 10:15 | Outpatient (RCR) | payer MEDICARE, BC, SELFPAY ==
--- NOTE | 2023-11-03 12:41 | PT.OPE ---
PT [place] Outpatient Eval PT [facility] Outpatient Eval Start: 11/03/23 07:53 Freq: Status: Active Protocol: Document 11/03/23 12:39 CJT (Rec: 11/03/23 12:41 CJT [id number]) E-signed By Laith Blanca PT Physical Therapy Outpatient Evaluation Insurance Information Recert Due Date 02/01/24 Insurance Name Medicare B Medical Diagnosis Other abnormalities of gait and mobility Treating Diagnosis Other abnormalities of gait and mobility R knee pain R knee stiffness Referring Daphne Sky Subjective Subjective Pt reports she had a full- blown flare-up of arthritis a few months back. Also was quite sick shortly after this flare-up. Was very frustrated with her pain and noted aches in nearly all the joints of her body. Was experiencing this pain until she was prescribed oral prednisone and this seemed to help her pain significantly. Pt wants to improve her strength and reports that ortho would like her strengthen around her knee . Had issues with balance but feels this is much improved and is no longer concerned. Pt also notes that she will be having a R TKA performed by Dr Kathy Sneed but has yet to schedule this surgery. Has trip 11/15-11/22 to [place]. Pain Comments 07/11 Date of Last Physician Visit 10/27/23 Current Work Status Retired Preferred Name Cristina Precautions Therapy Limitations/Systems Review Not Limited Objective Other/Pertinent Objective R Hip ROM Flexion - 120 Extension - 10 L Hip ROM Flexion - 120 Extension - 10 R knee ROM - 0-3-117 L knee ROM - 0-0-122 R Hip Strength Flexion - 4/5 MMT Abduction - 4/5 MMT Adduction - 5/5 MMT IR - 4+/5 MMT ER - 4+/5 MMT Extension - 3/5 MMT L Hip Strength Flexion - 4/5 MMT Abduction - 4/5 MMT Adduction - 5/5 MMT IR - 5/5 MMT ER - 5/5 MMT Extension - 3/5 MMT R knee Extension - 5/5 MMT R Knee Flexion - 5/5 MMT L knee Extension - 5/5 MMT L knee Flexion - 5/5 MMT R ankle DF - 4+/5 MMT L ankle DF - 4+/5 MMT Palpation: pt reports pain/ tenderness with palpation to R anteromedial knee at joint line Gait: minimal gait deviations noted including L Trendelenburg, reduced R knee flexion and R ankle DF at initial swing phase of gait with minimal toe clearance. Special Testing Slump: SLR: negative FADIR: negative KIMBERLY: positive R or pain in R posterior hip Nell's: moderately positive B Hamstring: negative B 30 Second Yiu-gm-Izzoa: 18 reps 5 Times sit to Stand: 8.5 seconds Assessment Assessment/Impression Cristina is a very pleasant 78 year old female who presents to our clinic for evaluation and treatment of weakness and balance issues. While she feels her balance issues have resolved at this point, we elected to focus on her issues with her R knee including weakness and decreased ROM. Cristina is currently pending scheduling for a R TKA to be performed by Dr. Sneed. Pt presents with deficits in B hip strength (see obj) and ROM with soft tissue restrictions noted in anterior hips bilaterally. Cristina's functional strength today was excellent for her [id number]-gs-[id number] testing, however she does exhibit significant knee valgus R>L while performing this movement , likely due to lateral hip weakness. The nature of the pts condition was explained and all questions were answered to the pts satisfaction. Skilled PT services are medically necessary to address deficits and return patient to highest level of function. Recommend physical therapy sessions 1-2/ week for 4-6 weeks. Pt agrees with this plan. Printout of HEP was given for I completion and pt gives verbal understanding of each exercise . Primary Functional Limitations Walking, stairs, kneeling Plan of Care Rehabilitation Potential Good Physical Therapy Goals STG - To be completed in 2-3 weeks: 1. Pt will demo 0 degrees of knee extension on R to allow for reduced post-surgical complications and risk of contracture development following R TKA. 2. Pt will demo 5/5 MMT for both hip abduction and extension motions bilaterally to allow for improved functional strength with activities including climbing stairs and transfers. LTG - To be completed in 6 weeks: 1. Pt to be I with HEP so that she may I manage progression of symptoms. 2. Pt will report ability to work in her garden for up to 60 minutes with maximum 2/10 knee pain so that she may continue to garden for pleasure with minimal pain. Treatment Plan/Direct Interventions Ice/Cold/Vasopneumatic,Joint Mobilization,Manual Therapy, Neuromuscular Re-ed,Self-Care/ Home Management,Therapeutic Activities,Therapeutic Exercises Frequency/Duration 1-2/week for 4-6 weeks Patient Will Be Discharged From Therapy Completion of LTG(s),Skills Plateau,Independent w/HEP, Independently Progressing Evaluation Billing Untimed Code Treatment Minutes 45 PT Eval No Charge No Complexity Low Certification Information Initial Certification Date 11/03/23 Ending Certification Date 02/01/24 Provider Signature Required Yes Provider Signature Shows Agreement With POC & Medical Necessity Physician NPI Number Write NPI# Here Physician Comment/Change : Physician Signature & Date Requested Please Sign/Date Here
--- NOTE | 2024-01-22 11:15 | PT.OPDN ---
PT [facility] Daily Note PT [facility] Outpatient Daily Note Start: 11/03/23 07:53 Freq: Status: Active Protocol: Document 01/22/24 08:07 CJT (Rec: 01/22/24 08:09 CJT [id number]) E-signed By Laith Blanca, PT PT OP Daily Progress Note Visit Information Note Type Re-Evaluation Visit Number 3 Insurance Authorized Visits tbd Physician Authorized Visits eval and treat Insurance Information Recert Due Date 04/21/24 Insurance Name Medicare B Medical Diagnosis Other abnormalities of gait and mobility Treating Diagnosis Other abnormalities of gait and mobility R knee pain R knee stiffness Referring Daphne Sky Subjective Preferred Name Cristina Subjective Pt presents for re-evaluation with complaints of R knee pain . Pt would like to have her R TKA performed by Dr. Sneed. Pt also notes that she is having issues with her mobility due to pain. Has been walking with a cane and has been trying to walk as much as she can as she knows this is good for her. Cristina understands that she is in need of a R TKA but just isn't sure when she wants to have this done. She makes it known today that it is very important to her that she has good mobility around the holidays. Pt also notes she has been having issues with her blood pressure and this has been concerning. Pain Comments 0-8/10 depending on activity level 0/10 pain while sitting Date of Last Physician Visit 01/14/24 Home Exercise Home Exercise Comments Access Code: [email or web address] URL: [email or web address]/ Date: 01/22/2024 Prepared by: Laith Blanca Exercises - Supine Bridge - 1 x daily - 7 x weekly - 2 sets - 10-20 reps - Supine Active Straight Leg Raise - 1 x daily - 7 x weekly - 2 sets - 10-20 reps - Seated Knee Extension Stretch with Chair - 1 x daily - 7 x weekly - 5 minutes hold - Standing Hip Abduction with Counter Support - 1 x daily - 7 x weekly - 2-3 sets - 10-15 reps - Standing Hip Extension with Counter Support - 1 x daily - 7 x weekly - 2-3 sets - 10-15 reps - Heel Raises with Counter Support - 1 x daily - 7 x weekly - 2-3 sets - 10-15 reps Objective Other/Pertinent Objective R Hip ROM Flexion - 120 Extension - 10 L Hip ROM Flexion - 120 Extension - 10 R knee ROM - 0-5-122 L knee ROM - 0-0-122 R Hip Strength Flexion - 4+/5 MMT Abduction - 4/5 MMT Adduction - 5/5 MMT IR - 4+/5 MMT ER - 4+/5 MMT Extension - 3/5 MMT L Hip Strength Flexion - 5/5 MMT Abduction - 4/5 MMT Adduction - 5/5 MMT IR - 5/5 MMT ER - 5/5 MMT Extension - 3/5 MMT R knee Extension - 5/5 MMT R Knee Flexion - 5/5 MMT L knee Extension - 5/5 MMT L knee Flexion - 5/5 MMT Gait: moderate gait deviations noted including L Trendelenburg, reduced R knee flexion and R ankle DF at initial swing phase of gait with minimal toe clearance. Special Testing Slump: negative SLR: negative FADIR: negative KIMBERLY: positive R or pain in R posterior hip Nell's: positive B with pain noted in anterior thigh Hamstring: negative B Functional Test Performed & Score 30 Second [place]: 15 reps (18 reps on 11/03/23) 5 Times sit to Stand: 10.35 seconds (8.5 seconds on 11/03/23 ) Patient Instructed in Risks/Benefits Yes Therapeutic Exercise Therapeutic Exercise Minutes (minutes) 18 Therapeutic Exercise: To Restore Total Gym Squats 2 x 20 Functional Status Leg Press, 30# x 10, 50# x 10 Gastroc stretch on slant board , 15 degrees, 60 Hip abduction in standing x 12 ea Heel raises with hands at counter x 12 Treatment Minutes Untimed Code Treatment Minutes 44 Timed Code Treatment Minutes 18 Total Treatment Time 62 Billing Units Therapeutic Activity Units 1 Re-Evaluation Units 1 Assessment/Impression Assessment/Impression Cristina and I had a thorough discussion today regarding her knee pain and mobility concerns. Given Cristina's reduction in function strength when comparing objective measures from October 2023, I would recommend that she pursues a R TKA sooner, rather than later, as I would expect her functional strength to continue to diminish due to her pain. Having good mobility by [place] time is important to Cristina and so we discussed that scheduling a R TKA in late-January or early -March would allow her to fully complete her rehabilitation prior to . She is in favor of this option. As of now, my primary concerns for Cristina's physical health are lack of full knee extension on R ( currently lacking 5 degrees actively) as well as 4/5MMT hip abduction strength bilaterally and 3/5 MMT hip extension strength bilaterally . Cristina and I also had a thorough discussion of her therapy goals and what must be done to accomplish them. Cristina gives verbal understanding to these goals and is in agreement with each of them. The nature of the pts condition was explained and all questions were answered to the pts satisfaction. Skilled PT services are medically necessary to address deficits and return patient to highest level of function. Recommend physical therapy sessions 2/ week for 6 weeks, with re- evaluation and therapy adjustments to be made around the time of her surgery. Pt agrees with this plan. Printout of HEP was given for I completion and pt gives verbal understanding of each exercise. Plan of Care Physical Therapy Goals STG - To be completed in 4 weeks: 1. Pt will demo 0 degrees of knee extension on R to allow for reduced post-surgical complications and risk of contracture development following R TKA. 2. Pt will report ability to walk up to 10 minutes with max 2/10 pain in R knee so that she may continue to walk for light level exercise. LTG - To be completed in 6 weeks: 1. Pt to be I with HEP so that she may I manage progression of symptoms. 2. Pt will demo 5/5 MMT for hip abduction bilaterally to better support hips in weight bearing positions and allow for improved functional strength with activities including climbing stairs and transfers. 3. Pt will demo at least 4/5 MMT for hip extension bilaterally to allow for ease of transfers and climbing steps. Daily Plan of Care Continue per POC Student Supervision Licensed PT Directed/Approved Treatment, Reviewed POC with Patient,Made Contact with Patient, Participated in Treatment Documentation Reviewed By Audio Video Repairer Yes
--- NOTE | 2024-01-22 11:17 | PT.OPDN ---
PT [facility] Outpatient Daily Note PT [facility] Outpatient Daily Note Start: 11/03/23 07:53 Freq: Status: Active Protocol: Document 01/22/24 08:07 CJT (Rec: 01/22/24 08:09 CJT [id number]) E-signed By Laith Blanca, PT PT OP Daily Progress Note Visit Information Note Type Re-Evaluation Visit Number 3 Insurance Authorized Visits tbd Physician Authorized Visits eval and treat Insurance Information Recert Due Date 04/21/24 Insurance Name Medicare B Medical Diagnosis Other abnormalities of gait and mobility Treating Diagnosis Other abnormalities of gait and mobility R knee pain R knee stiffness Referring Daphne Sky Subjective Preferred Name Cristina Subjective Pt presents for re-evaluation with complaints of R knee pain . Pt would like to have her R TKA performed by Dr. Sneed. Pt also notes that she is having issues with her mobility due to pain. Has been walking with a cane and has been trying to walk as much as she can as she knows this is good for her. Cristina understands that she is in need of a R TKA but just isn't sure when she wants to have this done. She makes it known today that it is very important to her that she has good mobility around the holidays. Pt also notes she has been having issues with her blood pressure and this has been concerning. Pain Comments 0-8/10 depending on activity level 0/10 pain while sitting Date of Last Physician Visit 01/14/24 Home Exercise Home Exercise Comments Access Code: [email or web address] URL: [email or web address] Date: 01/22/2024 Prepared by: Laith Blanca Exercises - Supine Bridge - 1 x daily - 7 x weekly - 2 sets - 10-20 reps - Supine Active Straight Leg Raise - 1 x daily - 7 x weekly - 2 sets - 10-20 reps - Seated Knee Extension Stretch with Chair - 1 x daily - 7 x weekly - 5 minutes hold - Standing Hip Abduction with Counter Support - 1 x daily - 7 x weekly - 2-3 sets - 10-15 reps - Standing Hip Extension with Counter Support - 1 x daily - 7 x weekly - 2-3 sets - 10-15 reps - Heel Raises with Counter Support - 1 x daily - 7 x weekly - 2-3 sets - 10-15 reps Objective Other/Pertinent Objective R Hip ROM Flexion - 120 Extension - 10 L Hip ROM Flexion - 120 Extension - 10 R knee ROM - 0-5-122 L knee ROM - 0-0-122 R Hip Strength Flexion - 4+/5 MMT Abduction - 4/5 MMT Adduction - 5/5 MMT IR - 4+/5 MMT ER - 4+/5 MMT Extension - 3/5 MMT L Hip Strength Flexion - 5/5 MMT Abduction - 4/5 MMT Adduction - 5/5 MMT IR - 5/5 MMT ER - 5/5 MMT Extension - 3/5 MMT R knee Extension - 5/5 MMT R Knee Flexion - 5/5 MMT L knee Extension - 5/5 MMT L knee Flexion - 5/5 MMT Gait: moderate gait deviations noted including L Trendelenburg, reduced R knee flexion and R ankle DF at initial swing phase of gait with minimal toe clearance. Special Testing Slump: negative SLR: negative FADIR: negative KIMBERLY: positive R or pain in R posterior hip Nell's: positive B with pain noted in anterior thigh Hamstring: negative B Functional Test Performed & Score 30 Second Yqa-kw-[id number]: 15 reps (18 reps on 11/03/23) 5 Times sit to Stand: 10.35 seconds (8.5 seconds on 11/03/23 ) Patient Instructed in Risks/Benefits Yes Therapeutic Exercise Therapeutic Exercise Minutes (minutes) 18 Therapeutic Exercise: To Restore Total Gym Squats 2 x 20 Functional Status Leg Press, 30# x 10, 50# x 10 Gastroc stretch on slant board , 15 degrees, 60 Hip abduction in standing x 12 ea Heel raises with hands at counter x 12 Treatment Minutes Untimed Code Treatment Minutes 44 Timed Code Treatment Minutes 18 Total Treatment Time 62 Billing Units Therapeutic Activity Units 1 Re-Evaluation Units 1 Assessment/Impression Assessment/Impression Cristina and I had a thorough discussion today regarding her knee pain and mobility concerns. Given Cristina's reduction in function strength when comparing objective measures from October 2023, I would recommend that she pursues a R TKA sooner, rather than later, as I would expect her functional strength to continue to diminish due to her pain. Having good mobility by [place] time is important to Cristina and so we discussed that scheduling a R TKA in late-January or early -March would allow her to fully complete her rehabilitation prior to . She is in favor of this option. As of now, my primary concerns for Cristina's physical health are lack of full knee extension on R ( currently lacking 5 degrees actively) as well as 4/5MMT hip abduction strength bilaterally and 3/5 MMT hip extension strength bilaterally . Cristina and I also had a thorough discussion of her therapy goals and what must be done to accomplish them. Cristina gives verbal understanding to these goals and is in agreement with each of them. The nature of the pts condition was explained and all questions were answered to the pts satisfaction. Skilled PT services are medically necessary to address deficits and return patient to highest level of function. Recommend physical therapy sessions 2/ week for 6 weeks, with re- evaluation and therapy adjustments to be made around the time of her surgery. Pt agrees with this plan. Printout of HEP was given for I completion and pt gives verbal understanding of each exercise. Plan of Care Physical Therapy Goals STG - To be completed in 4 weeks: 1. Pt will demo 0 degrees of knee extension on R to allow for reduced post-surgical complications and risk of contracture development following R TKA. 2. Pt will report ability to walk up to 10 minutes with max 2/10 pain in R knee so that she may continue to walk for light level exercise. LTG - To be completed in 6 weeks: 1. Pt to be I with HEP so that she may I manage progression of symptoms. 2. Pt will demo 5/5 MMT for hip abduction bilaterally to better support hips in weight bearing positions and allow for improved functional strength with activities including climbing stairs and transfers. 3. Pt will demo at least 4/5 MMT for hip extension bilaterally to allow for ease of transfers and climbing steps. Daily Plan of Care Continue per POC Recertification Information Initial Certification Date 11/03/23 Recertification Start Date 01/22/24 Recertification Due Date 04/21/24 Reasons to Continue Skilled Therapy PT services are medically required to address pts ROM, strength, and mobility deficits. Rehabilitation Potential Good Continued Plan of Care and Interventions Ther-Ex, Neuro-re-ed, manual therapy and modalities as needed. Provider Signature Shows Agreement With POC & Medical Necessity Physician Comment/Change Comment or Changes Physician NPI Number #
== END 2024-07-06 14:54 | disposition home or self-care (01) ==
PROVIDERS: PCP Physician Assistant Medical; Visit Provider Physician Assistant Medical
DX: R26.89 Other abnormalities of gait and mobility (principal); M17.11 Unilateral primary osteoarthritis, right knee; R42 Dizziness and giddiness; M25.561 Pain in right knee; M25.661 Stiffness of right knee, not elsewhere classified; Z51.89 Encounter for other specified aftercare
CPT/HCPCS: 97110; 97140; 97161; 97164; 97530

== ENCOUNTER 2024-09-26 09:00 | Outpatient (CLI) | payer MEDICARE, BC, SELFPAY | END 2024-09-26 09:01 | disposition home or self-care (01) | LOC: NFLDREF 09-27 21:55 | PROVIDERS: PCP Physician Assistant Medical; Referring Provider Physician Assistant Medical; Visit Provider Physician Assistant Medical | DX: I10 Essential (primary) hypertension (principal); D51.9 Vitamin B12 deficiency anemia, unspecified; E78.5 Hyperlipidemia, unspecified; R79.89 Other specified abnormal findings of blood chemistry; E55.9 Vitamin D deficiency, unspecified | CPT/HCPCS: 80053; 80061; 82306; 82607; 84443 ==